=== PATIENT | male | born 1945 | race Caucasian/White ===

== ENCOUNTER 2017-05-13 08:43 | Emergency (ER) | payer OTHER ==
[~2017-05-13 08:43] MED LIST: AMLO5CAP PO; HYDR12.57 PO; OXYC15TA PO; PRAV80TA2 PO; ROPI1TAB PO; VENTAER INH; WARF-23 PO
[2017-05-13 08:48] VITALS: BP 126/58; PULSE 80; RESP 20; TEMP 98.6; O2SAT 93
[2017-05-13 09:15] VITALS: RESP 18; O2SAT 93
[2017-05-13] MEDS ORDERED: ACETAMINOPHEN 325 MG TAB PO ONE (09:45)
[2017-05-13] MEDS ORDERED: SODIUM CHLORID 0.9% 500 ML INJ 500 ML IV ONE (09:45)
[2017-05-13] MEDS ORDERED: SODIUM CHLORIDE 0.9% FLUSH 10 ML FLUSH IVF PRN (09:45)
[2017-05-13] MEDS ORDERED: methylPREDNISolone SOD SUCC 125 MG/2 ML VIAL IV PUSH ONE (09:45)
[2017-05-13 09:52] LABS: AUTOMATED NEUTROPHIL # 4.1 TH/MM3 (1.8-7.7); BASOPHIL # 0.1 TH/MM3 (0-0.2); EOSINOPHIL % 0.1 % (0.0-4.0); HEMOGLOBIN 10.7 GM/DL (13.0-17.0); LYMPHOCYTE # 0.6 TH/MM3 (1.0-4.8); MEAN CELL VOLUME 96.7 FL (80.0-100.0); MEAN CORPUSCULAR HEMOGLOBIN 30.6 PG (27.0-34.0); MEAN CORPUSCULAR HGB CONC 31.6 % (32.0-36.0); MEAN PLATELET VOLUME 7.7 FL (7.0-11.0); MONOCYTE # 0.6 TH/MM3 (0-0.9); NEUT % 75.9 % (16.0-70.0); PLATELET COUNT 191 TH/MM3 (150-450); RED BLOOD COUNT 3.51 MIL/MM3 (4.50-5.90); RED CELL DISTRIBUTION WIDTH 13.7 % (11.6-17.2); WHITE BLOOD COUNT 5.4 TH/MM3 (4.0-11.0)
[2017-05-13] MEDS: RESP: ALBUTEROL 2.5 MG/IPRATROPIUM 0.5 MG NEB (SCH) INH ×2 (09:55→09:56)
[2017-05-13 10:02] LABS: CALCIUM 8.3 MG/DL (8.5-10.1); CHLORIDE 97 MEQ/L (98-107); SODIUM (NA) 135 MEQ/L (136-145)
[2017-05-13 10:03] LABS: ALBUMIN 3.6 GM/DL (3.4-5.0); BICARBONATE 28.6 MEQ/L (21.0-32.0); GLUCOSE,RANDOM 108 MG/DL (74-106)
[2017-05-13 10:06] LABS: CREATININE 0.74 MG/DL (0.60-1.30); GLOMERULAR FILTRATION RATE 104 ML/MIN (>89)
[2017-05-13 10:07] LABS: ALT (GPT) 25 U/L (12-78); TOTAL BILIRUBIN ADULT 0.3 MG/DL (0.2-1.0)
[2017-05-13 10:08] LABS: TOTAL PROTEIN 7.2 GM/DL (6.4-8.2)
[2017-05-13 10:09] LABS: ALKALINE PHOSPHATASE 63 U/L (45-117)
--- NOTE | 2017-05-13 10:09 | RADRPT ---
EXAM DATE/TIME: 05/13/2017 09:50 [place] COMPARISON: CHEST PA & LAT, April 11, 2016, 20:39. INDICATIONS : Short of breath MEDICAL HISTORY : Hypertension. Aneurysm, abdominal SURGICAL HISTORY : None. ENCOUNTER: Initial ACUITY: 3 days PAIN SCORE: 0/10 LOCATION: Bilateral chest FINDINGS: The chest appears stable with mild osteopenia and anterior wedging mild compression mid thoracic vert ebral bodies. There atherosclerotic changes of aorta with normal vascularity and normal sized heart. Lung dias are clear. CONCLUSION: Stable chest with no acute cardiopulmonary process Murali Elliott MD on May 13, 2017 at 10:05 Board Certified Radiologist. This report was verified electronically.
[2017-05-13 10:11] LABS: AST (GOT) 31 U/L (15-37); BLOOD UREA NITROGEN 10 MG/DL (7-18)
[2017-05-13 10:30] VITALS: BP 122/63; PULSE 84; RESP 16; O2SAT 93
[2017-05-13 10:39] VITALS: RESP 16
[2017-05-13] MEDS ORDERED: PRED50 PO (10:54)
[2017-05-13] MEDS ORDERED: ZITHTAB PO (10:54)
--- NOTE | 2017-05-13 10:54 | PD ---
HPI Chief Complaint: Cold / Flu Symptoms Time Seen by Provider: 09:14 Travel History International Travel<30 days: No Contact w/Intl Traveler<30days: No Traveled to known affect area: No History of Present Illness HPI Patient is a 72-year-old male comes in complaining of shortness of breath and cough for 3 days. He says he feels like he "has the flu." He has not had documented temperature at home. He has history of COPD and has been using albuterol at home without much relief. He denies any chest pain. He has not had nausea or vomiting. He denies leg pain or swelling. Nothing seems to make his symptoms better or worse. PFSH Past Medical History Hx Anticoagulant Therapy: Yes AAA: Yes (ADVISED TO F/U WITH PMD 2 YRS AGO. HAS NOT ) Arthritis: No Asthma: No Autoimmune Disease: No Blood Disorders: No Anxiety: Yes Depression: No Heart Rhythm Problems: No Cancer: No Cardiac Catheterization: Yes Cardiovascular Problems: Yes (STENTS) High Cholesterol: Yes Chemotherapy: No Chest Pain: No Congestive Heart Failure: No COPD: Yes Cerebrovascular Accident: No Diabetes: No Diminished Hearing: No Deep Vein Thrombosis: Yes Endocrine: No GERD: No Glaucoma: No Genitourinary: Yes Headaches: No Hepatitis: No Hiatal Hernia: No Hypertension: Yes Kidney Stones: Yes Musculoskeletal: Yes (CHRONIC BACK AND NECK PAIN) Neurologic: Yes Psychiatric: No Respiratory: Yes Myocardial Infarction: No Radiation Therapy: No Renal Failure: No Seizures: No Sickle Cell Disease: No Sleep Apnea: No Thyroid Disease: No Ulcer: No Tetanus Vaccination: < 5 Years Influenza Vaccination: No Past Surgical History Abdominal Surgery: Yes (HERNIA REPAIR LT GROIN) AICD: No Cardiac Surgery: Yes (STENTS x2-3?) Ear Surgery: No Endocrine Surgery: No Eye Surgery: No Genitourinary Surgery: No Gynecologic Surgery: No Neurologic Surgery: No Oral Surgery: No Pacemaker: No Thoracic Surgery: No Other Surgery: Yes (HERNIA REMOVED) Social History Alcohol Use: No Tobacco Use: Yes (1 ppd cigs) Substance Use: No Allergies-Medications (Allergen,Severity, Reaction): Coded Allergies: No Known Allergies (Verified Adverse Reaction, Unknown, 05/13/17) Reported Meds & Prescriptions Reported Meds & Active Scripts Active Reported Hydrochlorothiazide 12.5 Mg Cap 12.5 Mg PO DAILY Warfarin 5 Mg Tab 5 Mg PO DAILY Pravastatin 80 Mg Tab 80 Mg PO DAILY Ropinirole 1 Mg Tab 1 Mg PO ONCE Ventolin Hfa 18 GM Inh (Albuterol Sulfate) 90 Mcg/Act Aer 2 Puff INH Q6H PRN Amlodipine-Benazepril 5-10 Mg Cap 1 Cap PO DAILY Review of Systems Except as stated in HPI: all other systems reviewed are Neg General / Constitutional: No: Fever, Chills HENT: No: Headaches, Lightheadedness Cardiovascular: No: Chest Pain or Discomfort Respiratory: Positive: Cough, Shortness of Breath Gastrointestinal: No: Nausea Genitourinary: No: Dysuria, Flank Pain Musculoskeletal: Positive: Myalgias Skin: No Rash, No Change in Pigmentation Neurologic: No: Weakness, Dizziness Physical Exam Narrative GENERAL: Awake and alert, in no acute distress. SKIN: Focused skin assessment warm/dry. HEAD: Atraumatic. Normocephalic. EYES: Pupils equal and round. No scleral icterus. ENT: Mucous membranes pink and moist. NECK: Trachea midline. No JVD. CARDIOVASCULAR: Regular rate and rhythm. No murmur appreciated. RESPIRATORY: No accessory muscle use. Diffuse wheezing, coarse breath sounds in left. Breath sounds equal bilaterally. GASTROINTESTINAL: Abdomen soft, non-tender, nondistended. MUSCULOSKELETAL: No obvious deformities. No clubbing. No cyanosis. No edema. NEUROLOGICAL: Awake and alert. No obvious cranial nerve deficits. Motor grossly within normal limits. Normal speech. PSYCHIATRIC: Appropriate mood and affect; insight and judgment normal. Data Data Last Documented VS Vital Signs Date Time Temp Pulse Resp B/P (MAP) Pulse Ox O2 Delivery O2 Flow Rate FiO2 05/13/17 10:39 16 05/13/17 10:30 84 122/63 (82) 93 Room Air 05/13/17 08:48 98.6 Orders Orders Influenzae A/B Antigen (05/13/17 08:49) Complete Blood Count With Diff (05/13/17 09:32) Comprehensive Metabolic Panel (05/13/17 09:32) Iv Access Insert/Monitor (05/13/17 09:32) Ecg Monitoring (05/13/17 09:32) Oximetry (05/13/17 09:32) Oxygen Administration (05/13/17 09:32) Chest, Pa & Lat (05/13/17 09:32) Sodium Chloride 0.9% Flush (Ns Flush) (05/13/17 09:45) Methylprednisolone So Succ Inj (Solumedr (05/13/17 09:45) Albuterol-Ipratropium Neb (Duoneb Neb) (05/13/17 09:45) Acetaminophen (Tylenol) (05/13/17 09:45) Sodium Chlorid 0.9% 500 Ml Inj (Ns 500 M (05/13/17 09:45) Labs Laboratory Tests Test 05/13/17 09:40 White Blood Count 5.4 TH/MM3 Red Blood Count 3.51 MIL/MM3 Hemoglobin 10.7 GM/DL Hematocrit 34.0 % Mean Corpuscular Volume 96.7 FL Mean Corpuscular Hemoglobin 30.6 PG Mean Corpuscular Hemoglobin Concent 31.6 % Red Cell Distribution Width 13.7 % Platelet Count 191 TH/MM3 Mean Platelet Volume 7.7 FL Neutrophils (%) (Auto) 75.9 % Lymphocytes (%) (Auto) 11.0 % Monocytes (%) (Auto) 12.0 % Eosinophils (%) (Auto) 0.1 % Basophils (%) (Auto) 1.0 % Neutrophils # (Auto) 4.1 TH/MM3 Lymphocytes # (Auto) 0.6 TH/MM3 Monocytes # (Auto) 0.6 TH/MM3 Eosinophils # (Auto) 0.0 TH/MM3 Basophils # (Auto) 0.1 TH/MM3 CBC Comment DIFF FINAL Differential Comment Blood Urea Nitrogen 10 MG/DL Creatinine 0.74 MG/DL Random Glucose 108 MG/DL Total Protein 7.2 GM/DL Albumin 3.6 GM/DL Calcium Level 8.3 MG/DL Alkaline Phosphatase 63 U/L Aspartate Amino Transf (AST/SGOT) 31 U/L Alanine Aminotransferase (ALT/SGPT) 25 U/L Total Bilirubin 0.3 MG/DL Sodium Level 135 MEQ/L Potassium Level 3.5 MEQ/L Chloride Level 97 MEQ/L Carbon Dioxide Level 28.6 MEQ/L Anion Gap 9 MEQ/L Estimat Glomerular Filtration Rate 104 ML/MIN [facility] Medical Decision Making Medical Screen Exam Complete: Yes Emergency Medical Condition: Yes Medical Record Reviewed: Yes Differential Diagnosis COPD exacerbation versus bronchitis versus pneumonia versus influenza versus URI Narrative Course Patient is a 72-year-old male who comes in complaining of cough and shortness of breath. Exam shows diffuse wheezing as well as coarse breath sounds. IV established, labs sent. Labs show no acute abnormalities. Influenza screen is negative. Chest x-ray performed shows no acute abnormalities. Last 24 hours Impressions Chest X-Ray 05/13/17 0932 Signed Impressions: Service Date/Time: Saturday, May 13, 2017 09:50 - CONCLUSION: Stable chest with no acute cardiopulmonary process Murali Elliott MD Patient given 3 duo nebs and Solu-Medrol. Given IV fluids. He reports feeling better. Lung sounds are now clear to auscultation. He'll be discharged with prescriptions for prednisone as well as azithromycin. Advised follow-up with his primary care doctor. Advised to return to the ED as needed for any worsening symptoms. Diagnosis Primary Impression: COPD (chronic obstructive pulmonary disease) Qualified Codes: J44.1 - Chronic obstructive pulmonary disease with (acute) exacerbation Patient Instructions: COPD (Chronic Obstructive Pulmonary Disease) (ED), General Instructions Additional Instructions: Take all of your antibiotics. Start the Prednisone tomorrow as you had steroids already today. Follow up with your doctor. Return to the ED as needed for any worsening symptoms. Scripts Azithromycin (Zithromax Z-Barry) 250 Mg Dspk 250 MG PO DIRECTED for Infection, #1 DSPK 0 Refills 500 MG (2 tabs) day 1, then 1 tab days 2-5. Prov: Yael Marsh MD 05/13/17 Prednisone (Prednisone) 50 Mg Tab 50 MG PO DAILY for 4 Days, #4 TAB 0 Refills Prov: Yael Marsh MD 05/13/17 Disposition: 01 DISCHARGE HOME Condition: Stable Yael Marsh MD May 13, 2017 10:54
== END 2017-05-13 11:07 | disposition home or self-care (01) ==
LOC: PHED 08:43
DX: J44.1 Chronic obstructive pulmonary disease with (acute) exacerbation (principal); I10 Essential (primary) hypertension; E78.00 Pure hypercholesterolemia, unspecified; F41.9 Anxiety disorder, unspecified; I71.4 Abdominal aortic aneurysm, without rupture; F17.210 Nicotine dependence, cigarettes, uncomplicated; Z87.442 Personal history of urinary calculi; Z86.718 Personal history of other venous thrombosis and embolism; Z79.01 Long term (current) use of anticoagulants; Z79.899 Other long term (current) drug therapy
CPT/HCPCS: 71046; 80053; 85025; 87804; 94640; 94664; 96361; 96374; 99284; J2930; J7040

== ENCOUNTER 2017-11-06 20:00 | Inpatient (IN) ==
[2017-11-06] MEDS ORDERED: Morphine Inj 4 MG/ML Vial IV.PUSH ONE (22:00)
[2017-11-06 22:47] LABS: Baso % (Auto) 0.1 % (0.0-2.0); Eos % (Auto) 0.1 % (0.0-4.0); Hematocrit 35.4 % (39.0-51.0); Lymph # (Auto) 0.6 th/mm3 (1.0-4.8); Lymph % (Auto) 5.4 % (9.0-44.0); Mean Corpuscular HGB Conc 33.9 % (32.0-36.0); Mean Corpuscular Hemoglobin 32.2 pg (27.0-34.0); Mean Platelet Volume 8.8 fL (7.0-11.0); Mono # (Auto) 0.6 th/mm3 (0.0-0.9); Mono % (Auto) 5.8 % (0.0-8.0); Neut # (Auto) 9.5 th/mm3 (1.8-7.7); Neut % (Auto) 88.6 % (16.0-70.0); Platelet Count 218 th/mm3 (150-450); Red Blood Count 3.72 mil/mm3 (4.50-5.90); Red Cell Distribution Width 17.5 % (11.6-17.2); White Blood Count 10.7 th/mm3 (4.0-11.0)
--- NOTE | 2017-11-06 22:55 | XR ---
EXAM DATE: 11/06/2017 10:38 PM EDT AGE/SEX: 72 years / Male INDICATIONS: Cough, short of breath. CLINICAL DATA: This is the patient's initial encounter. Patient reports that signs and symptoms have been present for 1 day and indicates a pain score of 0/10. MEDICAL/SURGICAL HISTORY: Hypertension. Aneurysm, abdominal. None. COMPARISON: [facility], RIBS RIGHT MIN 3V W EXP CHEST, 11/02/2017. . FINDINGS: The patient is rotated towards the right. The heart size is normal. There is some prominence of the r ight hilar region. This could be secondary to the rotation. There is some increased density at the ri ght upper lung. Left lung appears clear. A significant effusion is not seen. There are compression de formities at what appeared to be the T5 and T10 vertebral bodies. CONCLUSION: Rotated chest x-ray. There is some increased prominence at the at the right hilar region and in the r ight upper lobe which could be partially secondary to the rotation. Some degree of consolidation or a telectasis in these regions cannot be excluded. Compression deformities at T5 and T10. Electronically signed by: Juanjo Leigh MD 11/06/2017 10:54 PM EDT
[2017-11-06 23:02] LABS: Activated Partial Thrombo Time 70.7 sec (24.3-30.1); Prothrombin Time 103.9 sec (9.8-11.6)
[2017-11-06 23:07] LABS: INR 10.4 Ratio
[2017-11-06 23:35] LABS: Alanine Aminotransferase 39 U/L (12-78); Albumin 3.6 g/dL (3.4-5.0); Alkaline Phosphatase 73 U/L (45-117); Anion Gap 15 meq/L (5-15); Aspartate Aminotransferase 32 U/L (15-37); Blood Urea Nitrogen 26 mg/dL (7-18); Calcium 9.5 mg/dL (8.5-10.1); Carbon Dioxide 24.6 meq/L (21.0-32.0); Chloride 100 meq/L (98-107); Glomerular Filtration Rate Greater Than 89 mL/min (>89); Glucose,Random 107 mg/dL (74-106); Sodium 140 meq/L (136-145); Total Protein 7.4 g/dL (6.4-8.2)
[2017-11-06 23:39] LABS: Potassium 2.8 meq/L (3.5-5.1)
--- NOTE | 2017-11-07 00:02 | CT ---
EXAM DATE: 11/06/2017 11:50 PM EDT AGE/SEX: 72 years / Male INDICATIONS: Trauma; three days ago. CLINICAL DATA: This is the patient's initial encounter. Patient reports that signs and symptoms have been present for 1 day and indicates a pain score of 5/10. MEDICAL/SURGICAL HISTORY: Deep venous thrombosis. Chronic obstructive pulmonary disease. None. RADIATION DOSE: 66.34 CTDI (mGy) COMPARISON: [facility], CT HEAD W/O CONTRAST, 11/02/2017. . TECHNIQUE: CT of the head without contrast. Using automated exposure control and adjustment of the mA and/or kV according to patient size, radiation dose was kept as low as reasonably achievable to ob tain optimal diagnostic quality images. DICOM format image data is available electronically for revi ew and comparison. FINDINGS: Cerebrum: Moderate parietal lobe atrophy similar to prior exam. The ventricles are normal for degree of atrophy. No evidence of midline shift, mass lesion, hemorrhage or acute infarction. No extraaxia l fluid collections are seen. Posterior Fossa: The cerebellum and brainstem are intact. The 4th ventricle is midline. The cerebe llopontine angle is unremarkable. Extracranial: The visualized portion of the orbits is intact. Mastoid air cells are opacified bilate rally. Skull: The calvaria is intact. No evidence of skull fracture. CONCLUSION: 1. Stable CT examination of the head. 2. No acute intracranial abnormality. Electronically signed by: Albert Lane MD 11/07/2017 12:01 AM EDT
--- NOTE | 2017-11-07 00:11 | CT ---
EXAM DATE: 11/06/2017 11:54 PM EDT AGE/SEX: 72 years / Male INDICATIONS: Trauma three days ago. CLINICAL DATA: This is the patient's initial encounter. Patient reports that signs and symptoms have been present for 1 day and indicates a pain score of 5/10. MEDICAL/SURGICAL HISTORY: Chronic obstructive pulmonary disease. Deep venous thrombosis. None. RADIATION DOSE: 5.21 CTDI (mGy) COMPARISON: [facility], CTA CHEST, 07/23/2017. . TECHNIQUE: Multiple contiguous axial images were obtained through the chest during bolus infusion of 100 ml Omnipaque 350 (iohexol) nonionic water-soluble contrast as a single exam dose. Images were obtained in suspended respiration using multiple row detector helical technique. Using automated ex posure control and adjustment of the mA and/or kV according to patient size, radiation dose was kept as low as reasonably achievable to obtain optimal diagnostic quality images. DICOM format image data is available electronically for review and comparison. FINDINGS: Lung: Mild upper lobe predominant centrilobular emphysema. Stable 4 mm subpleural nodule in the righ t upper lobe. Pleura: No effusion, significant pleural thickening or pneumothorax. Mediastinum: Coronary artery calcifications. Heart is otherwise unremarkable without pericardial eff usion. Central pulmonary artery is patent. Stable fusiform aneurysm of the ascending thoracic aorta m easuring up to 4.1 cm. Thoracic arch and descending thoracic aorta are unremarkable. Osseous Structures: Multiple nondisplaced right-sided rib fractures, 3-7th ribs. Angulated fractures of the anterior right second rib. Stable anterior flowing osteophytes in the mid to lower thoracic sp ine with severe compression fracture of T12 vertebral body. Soft Tissues: Soft tissues are unremarkable. No significant axillary adenopathy. Other: Postsurgical features of aortic aneurysm endograft stent repair. Visualized cephalad portion of the stent is patent. CONCLUSION: 1. Nondisplaced right-sided 3rd-7th rib fractures with angulated fracture of the anterior right seco nd rib. 2. No pneumothorax or pleural effusion. 3. Stable severe compression fracture of T12 vertebral body. 4. Redemonstration of mild upper lobe predominant centrilobular emphysema with stable 4 mm subpleura l nodule in the right upper lobe. 5. 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 6. Coronary artery calcifications. Electronically signed by: Albert Lane MD 11/07/2017 12:10 AM EDT
[2017-11-07] MEDS ORDERED: Phytonadione 5 MG/SWFI 5 ML Oral Syringe PO ONE (00:25)
[2017-11-07] MEDS: Potassium Chlor 20 mEq Premix 20 MEQ/100 ML PIGGYBACK IV.SIG SCH ×2 (03:20→05:30)
[2017-11-07] MEDS: Morphine Inj 4 MG/ML Vial IV.PUSH PRN ×5 (03:22→21:45)
[2017-11-07] MEDS ORDERED: Bisacodyl 10 MG Supp RECTAL PRN (05:22)
--- NOTE | 2017-11-07 05:32 | P.HPIM ---
History of Present Illness Service: [facility] Primary Care Physician: Dennis Martínez MD Chief Complaint: Constipation, pain due to rib fractures History of Present Illness: Mr. Olson is a 72 y/o male with a history of CAD s/p stent, aorta-femoral bypass, hyperlipidemia, hypertension, COPD, and recent fall with rib and clavicle fractures who presented to the ED on 11/06/17 for evaluation of constipation, rectal bleed, and pain from recent fractures. The patient reports severe right lateral rib pain with impaired ability to breath deeply. He reports no BM x 1 week and has seen some rectal bleeding. His INR is 10.4 in ED. The ED doctor was unable to manually disimpact the patient. He is admitted to the [facility] service. Inpatient Certification: I certify that the inpatient services were ordered in accordance with Medicare regulations governing the order. This includes certification that hospital inpatient services are reasonable and necessary and in the case of services not specified as inpatient-only under 42 CFR 419.22(n), that they are appropriately provided as inpatient services in accordance to with the 2-midnight benchmark under 43 CFR 412.3(e) Estimated Total Length of Stay (Days): 2 Plans for Post Hospital Care: Not yet determined Review of Systems All other systems reviewed negative except as stated in HPI [facility] - History History Provided By: Patient - Medical History Medical History: Medical History (Last Updated 11/07/17 @ 05:13 by ANNABEL Perez) DVT (deep venous thrombosis) (Acute) High cholesterol (Acute) HTN (hypertension) (Acute) CAD (coronary artery disease) COPD (chronic obstructive pulmonary disease) Presence of stent in coronary artery in patient with coronary artery disease Onset Date: ~2000 - Surgical History Surgical History: Surgical History (Last Updated 11/07/17 @ 05:13 by ANNABEL Perez) History of aorto-femoral bypass Onset Date: ~2000 - Family History Family History: Family History (Last Updated 11/07/17 @ 05:13 by ANNABEL Perez) Other Family history normal - Tobacco History Tobacco Use In Past 30 Days: Yes Smoking Status: Former smoker Tobacco Type: Cigarettes - Alcohol History How Often Do You Have a Drink Containing Alcohol: 4 or more times a week - Substance Use History Substance History: No History of Abuse - Travel History Recent Travel in the [place] Within the Last 8 Weeks: No Recent Travel Out of the Country Within the Last 8 Weeks: No - Immunization History Tetanus Immunization: <5 Years Hx Influenza Vaccine This Season: No Medications and Allergies Active Medications: Active Medications Morphine Sulfate (Morphine Inj) 4 mg IV.PUSH Q4H PRN PRN Reason: pain 6-10 Last Admin: 11/07/17 03:22 Dose: 4 mg Ondansetron HCl (Zofran Inj) 4 mg IV.PUSH Q6H PRN PRN Reason: NAUSEA Pantoprazole Sodium (Protonix Inj) 40 mg IV.PUSH DAILY DENNY Sodium Chloride (Ns Flush) 2 ml IV.FLUSH PRN PRN PRN Reason: FLUSH AFTER USING IV ACCESS Last Admin: 11/07/17 03:22 Dose: 2 ml Sodium Chloride (Ns Flush) 2 ml IV.FLUSH BID DENNY Sodium Chloride (Ns Flush) 2 ml IV.FLUSH PRN PRN PRN Reason: FLUSH AFTER USING IV ACCESS Allergies Allergy/AdvReac Type Severity Reaction Status Date / Time No Known Allergies Allergy Unverified 11/06/17 21:07 Home Medications Medication Instructions Recorded Confirmed Type Coumadin 10 mg PO DAILY 11/02/17 11/02/17 History amlodipine 10 mg PO DAILY 11/03/17 11/03/17 History hydrochlorothiazide 12.5 mg PO DAILY 11/03/17 11/03/17 History oxycodone-acetaminophen [Percocet] 1 tab PO Q6H PRN 11/03/17 11/03/17 History Exam Vital signs: Vital Signs 11/06/17 21:04 11/06/17 21:06 11/06/17 23:07 Temperature 97.8 F 97.3 F L Pulse Rate 71 103 H Respiratory Rate 20 20 Blood Pressure 125/59 L 151/101 H Pulse Oximetry 97 97 96 11/07/17 02:55 11/07/17 04:36 11/07/17 04:41 Temperature 98.1 F 98.2 F 98.2 F Pulse Rate 90 90 97 H Respiratory Rate 20 17 19 Blood Pressure 118/68 133/68 133/68 Pulse Oximetry 94 L 94 L 94 L Intake & Output 11/06/17 11/06/17 11/07/17 06:59 18:59 06:59 Intake Total 0 / 0 Balance 0 / 0 Weight 77.111 kg Intake: Intake (Blood Product) Amt 0 / 0 Plasma Thawed 5 Day Cp2d Unit 0 / 0 [id number] Plasma Thawed 5 Day Cp2d Unit 0 / 0 [id number] - Constitutional no acute distress, average body habitus - Routine HEENT Exam Head: Present: normocephalic, atraumatic ENT: Absent: dentition normal Comments: poor dentition - Routine Respiratory Exam Present: decreased breath sounds. Absent: wheezes, crackles - Routine Cardiovascular Exam Present: RRR, S1, S2. Absent: murmur, gallop, rubs - Routine Abdominal Exam Present: soft, tenderness. Absent: distended Comments: mildly tender with palpation; hypoactive bs - Routine Extremities Exam Absent: cyanosis, edema - Routine Skin Exam Present: intact, warm, ecchymosis Comments: right scapular area - Routine Neurological Exam Present: alert, oriented X3 Results - Labs CBC & Chem 7: 11/06/17 22:16 11/06/17 22:16 Labs: Short CBC 11/06/17 Range/Units 22:16 WBC 10.7 (4.0-11.0) th/mm3 Hgb 12.0 L (13.0-17.0) gm/dL Hct 35.4 L (39.0-51.0) % Plt Count 218 D (150-450) th/mm3 BMP 11/06/17 22:16 Sodium 140 Potassium 2.8 L* Chloride 100 Carbon Dioxide 24.6 BUN 26 H Creatinine 0.77 Calcium 9.5 Liver Function 11/06/17 Range/Units 22:16 Total Bilirubin 0.6 (0.2-1.0) mg/dL AST 32 (15-37) U/L ALT 39 (12-78) U/L Alkaline Phosphatase 73 (45-117) U/L Albumin 3.6 (3.4-5.0) g/dL - Imaging Impressions Chest X-Ray 11/06/17 22:02 CONCLUSION: Rotated chest x-ray. There is some increased prominence at the at the right hilar region and in the right upper lobe which could be partially secondary to the rotation. Some degree of consolidation or atelectasis in these regions cannot be excluded. Compression deformities at T5 and T10. Chest CT 11/06/17 23:06 CONCLUSION: 1. Nondisplaced right-sided 3rd-7th rib fractures with angulated fracture of the anterior right second rib. 2. No pneumothorax or pleural effusion. 3. Stable severe compression fracture of T12 vertebral body. 4. Redemonstration of mild upper lobe predominant centrilobular emphysema with stable 4 mm subpleural nodule in the right upper lobe. 5. 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 6. Coronary artery calcifications. Head CT 11/06/17 23:08 CONCLUSION: 1. Stable CT examination of the head. 2. No acute intracranial abnormality. Caprini VTE Risk Assessment Caprini VTE Risk Assessment: Moderate/High Risk (score >= 2) Caprini Risk Assessment Model: Point Value = 1 Point Value = 2 Point Value = 3 Point Value = 5 Age 41-60 Minor surgery BMI > 25 kg/m2 Swollen legs Varicose veins or History of unexplained or recurrent spontaneous Oral contraceptives or hormone replacement Sepsis (< 1 month) Serious lung disease, including pneumonia (< 1 month) Abnormal pulmonary function Acute myocardial infarction Congestive heart failure (< 1 month) History of inflammatory bowel disease Medical patient at bed rest Age 61-74 Arthroscopic surgery Major open surgery (> 45 min) Laparoscopic surgery (> 45 min) Malignancy Confined to bed (> 72 hours) Immobilizing plaster cast Central venous access Age >= 75 History of VTE Family history of VTE Factor V Leiden Prothrombin [id number] Lupus anticoagulant Anticardiolipin antibodies Elevated serum homocysteine Heparin-induced thrombocytopenia Other congenital or acquired thrombophilia Stroke (< 1 month) Elective arthroplasty Hip, pelvis, or leg fracture Acute spinal cord injury (< 1 month) Prophylaxis Regimen: Total Risk Factor Score Risk Level Prophylaxis Regimen 0-1 Low Early ambulation 2 Moderate Order ONE of the following: *Sequential Compression Device (SCD) *Heparin 5000 units SQ BID 3-4 Higher Order ONE of the following medications: *Heparin 5000 units SQ TID *Enoxaparin/Lovenox 40 mg SQ daily (WT < 150 kg, CrCl > 30 mL/min) *Enoxaparin/Lovenox 30 mg SQ daily (WT < 150 kg, CrCl > 10-29 mL/min) *Enoxaparin/Lovenox 30 mg SQ BID (WT < 150 kg, CrCl > 30 mL/min) AND/OR *Sequential Compression Device (SCD) 5 or more Highest Order ONE of the following medications: *Heparin 5000 units SQ TID (Preferred with Epidurals) *Enoxaparin/Lovenox 40 mg SQ daily (WT < 150 kg, CrCl > 30 mL/min) *Enoxaparin/Lovenox 30 mg SQ daily (WT < 150 kg, CrCl > 10-29 mL/min) *Enoxaparin/Lovenox 30 mg SQ BID (WT < 150 kg, CrCl > 30 mL/min) AND *Sequential Compression Device (SCD) Assessment and Plan - Plan Mr. Olson is a 72 y/o male with a history of CAD s/p stent, aorta-femoral bypass, hyperlipidemia, hypertension, COPD, and recent fall with rib and clavicle fractures who presented to the ED on 11/06/17 for evaluation of constipation, rectal bleed, and pain from recent fractures. The patient reports severe right lateral rib pain with impaired ability to breath deeply. He reports no BM x 1 week and has seen some rectal bleeding. His INR is 10.4 in ED. The ED doctor was unable to manually disimpact the patient. He is admitted to the [facility] service. GI bleed Constipation - NPO - consult gastroenterology - appreciate assistance - constipation meds per protocol - serial H&H - monitor results - IV Protonix Pain secondary to clavicular and rib fx - IV Morphine PRN pain COPD - Duonebs as needed for wheezing/SOB - incentive spirometry Self-care deficit - consult PT DVT prophylaxis - INR 10.0 Discussed Condition With: Patient, RN, and Dr. Goode
--- NOTE | 2017-11-07 07:34 | ED ---
HPI General Chief complaint: Medical Clearance Stated complaint: Hard to breath/per pt broken rib Time Seen by Provider: 11/06/17 21:52 History of Present Illness HPI narrative: Patient 72-year-old male who approximately a week ago presented to this emergency department for evaluation of right-sided pain after having a slip and fall. Diagnosed with rib fracture, clavicle fracture, head CT head and C-spine which were negative at that time, INR of 3 at that point. Was discharged home with narcotics, he revisited the emergency department once 2 days ago recommended for repeat chest x-ray and he declined. Additional narcotic medication was given to him and he went home. Patient presents emergency department today with shortness of breath and chest pain that is persisting, he states that he is also noticed some blood in his stool and is very difficult for him to make stool. He states he tried some Dulcolax suppositories and this was not helping. He has been taking his Coumadin as prescribed, denies any other decreased p.o. intake. He states he has been having some mild shortness of breath which he clarifies to mean he is having some pain with deep breathing. No abdominal pain no nausea no vomiting. Onset (ago): week(s) Location: chest Radiation: non-radiation Severity: moderate Pain Consistency: constant Relieving factors: none Exacerbating factors: none Related Data Home Medications Medication Instructions Recorded Confirmed Coumadin 10 mg PO DAILY 11/02/17 11/07/17 amlodipine 10 mg PO DAILY 11/03/17 11/07/17 hydrochlorothiazide 12.5 mg PO DAILY 11/03/17 11/07/17 oxycodone-acetaminophen [Percocet] 1 tab PO Q6H PRN 11/03/17 11/07/17 Allergies Allergy/AdvReac Type Severity Reaction Status Date / Time No Known Allergies Allergy Unverified 11/06/17 21:07 Review of Systems Except as stated in HPI: all other systems reviewed are negative [facility] Medical History Medical History DVT (deep venous thrombosis) (Acute) High cholesterol (Acute) HTN (hypertension) (Acute) CAD (coronary artery disease) (Acute) COPD (chronic obstructive pulmonary disease) (Acute) Presence of stent in coronary artery in patient with coronary artery disease ( Acute ~2000) Surgical History Surgical History History of aorto-femoral bypass (Acute ~2000) Family History Family History Other Family history normal Social History Social History Substance History: No History of Abuse Smoking Status: Former smoker Tobacco Type: Cigarettes How Often Do You Have a Drink Containing Alcohol: 4 or more times a week Recent Travel in [facility] within the Last 8 Weeks: No Recent Out of Country Travel within the Last 8 Weeks: No Exam Narrative Exam Narrative: GENERAL: Well-developed well-nourished in no obvious distress SKIN: Focused skin assessment warm/dry. Large contusion to the right anterior chest, there is also small hematoma over the mid clavicle. HEAD: Atraumatic. Normocephalic. EYES: Pupils equal and round. No scleral icterus. No injection or drainage. ENT: No nasal bleeding or discharge. Mucous membranes pink and moist. NECK: Trachea midline. No JVD. CARDIOVASCULAR: Regular rate and rhythm. No murmur appreciated. RESPIRATORY: No accessory muscle use. Clear to auscultation. Breath sounds equal bilaterally. GASTROINTESTINAL: Abdomen soft, non-tender, nondistended. Hepatic and splenic margins not palpable. RECTAL: This is a fairly hard accumulation of stool in the rectum, is at the tip of my finger and could not be expressed manually, fecal occult is positive, there is bright red blood mixed with brown stool. MUSCULOSKELETAL: No obvious deformities. No clubbing. No cyanosis. No edema. NEUROLOGICAL: Awake and alert. No obvious cranial nerve deficits. Motor grossly within normal limits. Normal speech. PSYCHIATRIC: Appropriate mood and affect; insight and judgment normal. Course Initial Documented Vital Signs Temperature 97.8 F 11/06/17 21:04 Pulse Rate 71 11/06/17 21:04 Respiratory Rate 20 11/06/17 21:04 Blood Pressure 125/59 L 11/06/17 21:04 Pulse Oximetry 97 11/06/17 21:04 Last Documented Vital Signs Temperature 98.2 F 11/07/17 04:41 Pulse Rate 97 H 11/07/17 04:41 Respiratory Rate 19 11/07/17 04:41 Blood Pressure 133/68 11/07/17 04:41 Pulse Oximetry 94 L 11/07/17 04:41 Critical Care Time Critical Care Time: Yes Total Critical Care Time: 35 Attestation: Aggregate critical care time was 35 minutes. Time to perform other separately billable procedures was not included in the critical care time. My time did not include minutes spent treating any other patients simultaneously or on activities that did not directly contribute to the patient's treatment. The services I provided to this patient were to treat and/or prevent clinically significant deterioration that could result in: , disability, organ failure I provided critical care services requiring my management, as noted below: Chart data review, documentation time, medication orders and management, vital sign assessments/reviewing monitor data, ordering and reviewing lab tests, ordering and interpreting/reviewing x-rays and diagnostic studies, care of the patient and discussion of the patient with the admitting physicians. Medical Decision Making MDM Narrative Medical decision making narrative: Patient room to the emergency department, my overall impression of him that this is probably rib pain secondary to his fall and constipation and subsequent GI bleeding which is exacerbated by hard stool probably from opiate therapy, he does have supratherapeutic INR with the value of 10, discussed with the patient vitamin K and plasma administration as well as recommendation to admit to the hospital for monitoring of H&H and INR levels. He verbalized understanding agreement. Morphine was given. CT of his chest was negative for internal injury but did show multiple right-sided rib fractures, CT head was repeated for delayed bleeding possibility and was also Differential Diagnosis Differential Diagnosis: Rib fracture, clavicle fracture, intrathoracic hematoma , head injury, delayed bleeding, coagulopathy, supratherapeutic INR, GI bleeding. Lab Data Result diagrams: 11/06/17 22:16 11/06/17 22:16 Lab Results 11/06/17 11/06/17 11/06/17 Range/Units 22:16 22:16 22:16 WBC 10.7 (4.0-11.0) th/mm3 RBC 3.72 L (4.50-5.90) mil/mm3 Hgb 12.0 L (13.0-17.0) gm/dL Hct 35.4 L (39.0-51.0) % MCV 95.0 (80.0-100.0) fL MCH 32.2 (27.0-34.0) pg MCHC 33.9 (32.0-36.0) % RDW 17.5 H (11.6-17.2) % Plt Count 218 D (150-450) th/mm3 MPV 8.8 (7.0-11.0) fL Neut % (Auto) 88.6 H (16.0-70.0) % Lymph % (Auto) 5.4 L (9.0-44.0) % Dawson % (Auto) 5.8 (0.0-8.0) % Eos % (Auto) 0.1 (0.0-4.0) % Baso % (Auto) 0.1 (0.0-2.0) % Neut # (Auto) 9.5 H (1.8-7.7) th/mm3 Lymph # (Auto) 0.6 L (1.0-4.8) th/mm3 Dawson # (Auto) 0.6 (0.0-0.9) th/mm3 Eos # (Auto) 0.0 (0.0-0.4) th/mm3 Baso # (Auto) 0.0 (0.0-0.2) th/mm3 WBC Differential . Differential Comment Auto diff final PT 103.9 H D (9.8-11.6) sec INR 10.4 H* Ratio APTT 70.7 H (24.3-30.1) sec Sodium 140 (136-145) meq/L Potassium 2.8 L* (3.5-5.1) meq/L Chloride 100 (98-107) meq/L Carbon Dioxide 24.6 (21.0-32.0) meq/L Anion Gap 15 (5-15) meq/L BUN 26 H (7-18) mg/dL Creatinine 0.77 (0.60-1.30) mg/dL Estimated GFR Greater than 89 (>89) mL/min POC Glucose (68-110) mg/dl Random Glucose 107 H (74-106) mg/dL Calcium 9.5 (8.5-10.1) mg/dL Total Bilirubin 0.6 (0.2-1.0) mg/dL AST 32 (15-37) U/L ALT 39 (12-78) U/L Alkaline Phosphatase 73 (45-117) U/L Total Protein 7.4 (6.4-8.2) g/dL Albumin 3.6 (3.4-5.0) g/dL Blood Type Blood Type Recheck Antibody Screen Blood Bank Comment 11/06/17 11/06/17 11/07/17 Range/Units 22:16 23:28 01:00 WBC (4.0-11.0) th/mm3 RBC (4.50-5.90) mil/mm3 Hgb (13.0-17.0) gm/dL Hct (39.0-51.0) % MCV (80.0-100.0) fL MCH (27.0-34.0) pg MCHC (32.0-36.0) % RDW (11.6-17.2) % Plt Count (150-450) th/mm3 MPV (7.0-11.0) fL Neut % (Auto) (16.0-70.0) % Lymph % (Auto) (9.0-44.0) % Dawson % (Auto) (0.0-8.0) % Eos % (Auto) (0.0-4.0) % Baso % (Auto) (0.0-2.0) % Neut # (Auto) (1.8-7.7) th/mm3 Lymph # (Auto) (1.0-4.8) th/mm3 Dawson # (Auto) (0.0-0.9) th/mm3 Eos # (Auto) (0.0-0.4) th/mm3 Baso # (Auto) (0.0-0.2) th/mm3 WBC Differential Differential Comment PT (9.8-11.6) sec INR Ratio APTT (24.3-30.1) sec Sodium (136-145) meq/L Potassium (3.5-5.1) meq/L Chloride (98-107) meq/L Carbon Dioxide (21.0-32.0) meq/L Anion Gap (5-15) meq/L BUN (7-18) mg/dL Creatinine (0.60-1.30) mg/dL Estimated GFR (>89) mL/min POC Glucose 116 H (68-110) mg/dl Random Glucose (74-106) mg/dL Calcium (8.5-10.1) mg/dL Total Bilirubin (0.2-1.0) mg/dL AST (15-37) U/L ALT (12-78) U/L Alkaline Phosphatase (45-117) U/L Total Protein (6.4-8.2) g/dL Albumin (3.4-5.0) g/dL Blood Type O Negative Blood Type Recheck Required Antibody Screen Negative Blood Bank Comment Imaging Data Radiologist's impression: ITS Impressions Chest X-Ray 11/06/17 22:02 CONCLUSION: Rotated chest x-ray. There is some increased prominence at the at the right hilar region and in the right upper lobe which could be partially secondary to the rotation. Some degree of consolidation or atelectasis in these regions cannot be excluded. Compression deformities at T5 and T10. Chest CT 11/06/17 23:06 CONCLUSION: 1. Nondisplaced right-sided 3rd-7th rib fractures with angulated fracture of the anterior right second rib. 2. No pneumothorax or pleural effusion. 3. Stable severe compression fracture of T12 vertebral body. 4. Redemonstration of mild upper lobe predominant centrilobular emphysema with stable 4 mm subpleural nodule in the right upper lobe. 5. 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 6. Coronary artery calcifications. Head CT 11/06/17 23:08 CONCLUSION: 1. Stable CT examination of the head. 2. No acute intracranial abnormality. Discharge Plan Discharge Disposition Patient Disposition: 30 Still Patient Discharge Details Diagnosis: Acute GI bleeding, Constipation, Abnormal INR, Closed rib fracture Physicians Team ED Provider: Bernardino Correa Primary Care Provider: Dennis Martínez Attending Provider: Casey Fried Other Providers: Corby Conrejo Discharge Interventions Interventions: Vital Signs Last Done: 11/06/17 21:06 Status ED Status: Admitted Patient
--- NOTE | 2017-11-07 08:49 | P.CONGI ---
History of Present Illness Consult date: 11/07/17 Chief complaint: GI Bleeding, Elev INR=10, Chest Wall Pain History of Present Illness: This is a 72 yo M with PMH significant for CAD S/P stents x 3, COPD, history of DVT, HTN, hyperlipidemia, and history of aorto-femoral bypass who is on chronic anticoagulation with Coumadin who presented to her ER last night with complaints of constipation. Pt reports symptoms began about a week ago after being on pain medication for a rib fracture after a fall. Reports that he has had some incontinent liquid stool that has passed but denies solid BMs. Pt has also noticed some BRB clots in his BMs, approximately 3 episodes. Denies abdominal pain but does endorse rectal pain when he tries to pass stool. In the ER he was noted to have an INR of 10.4 and according to ER notes the ER physician was unable to manually disimpact him. Pt denies history of GIB. Has never had EGD or colonoscopy. Denies any unintentional weight loss. <Angela Ovalles - Last Filed: 11/07/17 08:36> Chief complaint: GI Bleeding, Elev INR=10, Chest Wall Pain <Corby Cornejo - Last Filed: 11/08/17 09:43> Review of Systems Gastrointestinal: Reports bright, red blood in stools, Reports constipation, Denies abdominal pain, Denies black, tarry stools, Denies nausea, Denies vomiting <Angela Ovalles - Last Filed: 11/07/17 08:36> [facility] - History History Provided By: Patient - Medical History Medical History: Medical History (Last Reviewed 11/07/17 @ 07:43 by Dionisio Griffin) DVT (deep venous thrombosis) (Acute) High cholesterol (Acute) HTN (hypertension) (Acute) CAD (coronary artery disease) COPD (chronic obstructive pulmonary disease) Presence of stent in coronary artery in patient with coronary artery disease Onset Date: ~2000 - Surgical History Surgical History: Surgical History (Last Reviewed 11/07/17 @ 07:43 by Dionisio Griffin) History of aorto-femoral bypass Onset Date: ~2000 - Family History Family History: Family History (Last Updated 11/07/17 @ 05:13 by ANNABEL Perez) Other Family history normal - Tobacco History Tobacco Use In Past 30 Days: Yes Smoking Status: Former smoker Tobacco Type: Cigarettes - Alcohol History How Often Do You Have a Drink Containing Alcohol: 4 or more times a week - Substance Use History Substance History: No History of Abuse - Travel History Recent Travel in the [place] Within the Last 8 Weeks: No Recent Travel Out of the Country Within the Last 8 Weeks: No - Immunization History Tetanus Immunization: <5 Years Hx Influenza Vaccine This Season: No <Angela Ovalles - Last Filed: 11/07/17 08:36> - Medical History Medical History: Medical History (Last Reviewed 11/07/17 @ 07:43 by Dionisio Griffin) DVT (deep venous thrombosis) (Acute) High cholesterol (Acute) HTN (hypertension) (Acute) CAD (coronary artery disease) COPD (chronic obstructive pulmonary disease) Presence of stent in coronary artery in patient with coronary artery disease Onset Date: ~2000 - Surgical History Surgical History: Surgical History (Last Reviewed 11/07/17 @ 07:43 by Dionisio Griffin) History of aorto-femoral bypass Onset Date: ~2000 - Family History Family History: Family History (Last Updated 11/07/17 @ 05:13 by ANNABEL Perez) Other Family history normal <Corby Cornejo - Last Filed: 11/08/17 09:43> Medications and Allergies Active Medications: Active Medications Al Hydroxide/Mg Hydroxide (Milk Of Magnesia Liq) 30 ml PO Q12H PRN PRN Reason: Mild Constipation Albuterol (Duoneb Neb (Prn)) 1 ampul NEB Q2HR NEB PRN PRN Reason: sob/wheezing Bisacodyl (Dulcolax Supp) 10 mg RECTAL DAILY PRN PRN Reason: SEVERE CONSITIPATION Lactulose (Lactulose Liq) 30 ml PO DAILY PRN PRN Reason: SEVERE CONSITIPATION Morphine Sulfate (Morphine Inj) 4 mg IV.PUSH Q4H PRN PRN Reason: pain 6-10 Last Admin: 11/07/17 03:22 Dose: 4 mg Ondansetron HCl (Zofran Inj) 4 mg IV.PUSH Q6H PRN PRN Reason: NAUSEA Pantoprazole Sodium (Protonix Inj) 40 mg IV.PUSH DAILY [facility] Senna/Docusate Sodium (Kristina-Colace) 1 tab PO BID [facility] Sennosides (Senokot) 17.2 mg PO Q12H PRN PRN Reason: Moderate Constipation Sodium Chloride (Ns Flush) [address] [facility] Sodium Chloride (Ns Flush) 2 ml IV.FLUSH PRN PRN PRN Reason: FLUSH AFTER USING IV ACCESS <Angela Ovalles - Last Filed: 11/07/17 08:36> Active Medications: Active Medications Al Hydroxide/Mg Hydroxide (Milk Of Magnesia Liq) 30 ml PO Q12H PRN PRN Reason: Mild Constipation Albuterol (Duoneb Neb (Prn)) 1 ampul NEB Q2HR NEB PRN PRN Reason: sob/wheezing Bisacodyl (Dulcolax Supp) 10 mg RECTAL DAILY PRN PRN Reason: SEVERE CONSITIPATION Lactulose (Lactulose Liq) 30 ml PO DAILY PRN PRN Reason: SEVERE CONSITIPATION Morphine Sulfate (Morphine Inj) 4 mg IV.PUSH Q4H PRN PRN Reason: pain 6-10 Last Admin: 11/07/17 18:09 Dose: 4 mg Ondansetron HCl (Zofran Inj) 4 mg IV.PUSH Q6H PRN PRN Reason: NAUSEA Pantoprazole Sodium (Protonix Inj) [address] [facility] Last Admin: 11/07/17 10:04 Dose: 40 mg Senna/Docusate Sodium (Kristina-Colace) [address] [facility] Last Admin: 11/07/17 10:05 Dose: 1 tab Sennosides (Senokot) 17.2 mg PO Q12H PRN PRN Reason: Moderate Constipation Sodium Chloride (Ns Flush) [address] [facility] Last Admin: 11/07/17 10:05 Dose: 2 ml Sodium Chloride (Ns Flush) 2 ml IV.FLUSH PRN PRN PRN Reason: FLUSH AFTER USING IV ACCESS <Corby Cornejo - Last Filed: 11/08/17 09:43> Allergies Allergy/AdvReac Type Severity Reaction Status Date / Time No Known Allergies Allergy Unverified 11/06/17 21:07 Home Medications Medication Instructions Recorded Confirmed Type Coumadin 10 mg PO DAILY 11/02/17 11/07/17 History amlodipine 10 mg PO DAILY 11/03/17 11/07/17 History hydrochlorothiazide 12.5 mg PO DAILY 11/03/17 11/07/17 History oxycodone-acetaminophen [Percocet] 1 tab PO Q6H PRN 11/03/17 11/07/17 History Exam Vital signs: Vital Signs 11/06/17 21:04 11/06/17 21:06 11/06/17 23:07 Temperature 97.8 F 97.3 F L Pulse Rate 71 103 H Respiratory Rate 20 20 Blood Pressure 125/59 L 151/101 H Pulse Oximetry 97 97 96 11/07/17 02:55 11/07/17 04:36 11/07/17 04:41 Temperature 98.1 F 98.2 F 98.2 F Pulse Rate 90 90 97 H Respiratory Rate 20 17 19 Blood Pressure 118/68 133/68 133/68 Pulse Oximetry 94 L 94 L 94 L Intake & Output 11/06/17 11/07/17 11/07/17 18:59 06:59 18:59 Intake Total 100 / 100 Balance 100 / 100 Weight 77.111 kg Intake: IV 100 / 100 KCl 20 mEq Premix Inj 20 meq In 100 / 100 100 ml @ 50 mls/hr IV.SIG Q2H [facility] Rx#:[id number] Intake (Blood Product) Amt 0 / 0 Plasma Thawed 5 Day Cp2d Unit 0 / 0 [id number] Plasma Thawed 5 Day Cp2d Unit 0 / 0 [id number] - Constitutional mild distress - Routine HEENT Exam Head: Present: normocephalic, atraumatic - Routine Respiratory Exam Absent: accessory muscle use - Routine Cardiovascular Exam Present: RRR - Routine Abdominal Exam Present: soft, normoactive bowel sounds. Absent: tenderness, distended, rebound , guarding - Routine Skin Exam Present: dry, warm - Routine Neurological Exam Present: alert, oriented X3 <Angela Ovalles - Last Filed: 11/07/17 08:36> Vital signs: Vital Signs 11/06/17 21:04 11/06/17 21:06 11/06/17 23:07 Temperature 97.8 F 97.3 F L Pulse Rate 71 103 H Respiratory Rate 20 20 Blood Pressure 125/59 L 151/101 H Pulse Oximetry 97 97 96 11/07/17 02:55 11/07/17 04:36 11/07/17 04:41 Temperature 98.1 F 98.2 F 98.2 F Pulse Rate 90 90 97 H Respiratory Rate 20 17 19 Blood Pressure 118/68 133/68 133/68 Pulse Oximetry 94 L 94 L 94 L 11/07/17 13:24 11/07/17 13:42 11/07/17 14:08 Temperature 98.2 F Pulse Rate 91 H Respiratory Rate 18 18 Blood Pressure 123/95 H Pulse Oximetry 93 L 93 L 11/07/17 15:18 11/07/17 16:12 Temperature 98 F Pulse Rate 93 H 96 H Respiratory Rate 18 Blood Pressure 127/72 Pulse Oximetry 94 L Intake & Output 11/07/17 11/07/17 11/08/17 06:59 18:59 06:59 Intake Total 100 / 100 460 / 460 Balance 100 / 100 460 / 460 Weight 77.111 kg 71 kg Intake: IV 100 / 100 100 / 100 KCl 20 mEq Premix Inj 20 meq In 100 / 100 100 / 100 100 ml @ 50 mls/hr IV.SIG Q2H [facility] Rx#:[id number] Oral 360 / 360 Intake (Blood Product) Amt 0 / 0 Plasma Thawed 5 Day Cp2d Unit 0 / 0 [id number] Plasma Thawed 5 Day Cp2d Unit 0 / 0 [id number] Other: # Voids 2 Date of Last Bowel Movement 11/07/17 # Bowel Movements 2 Weight On Admission 71 kg <Corby Cornejo - Last Filed: 11/08/17 09:43> Results - Labs CBC & Chem 7: 11/06/17 22:16 11/06/17 22:16 Labs: Laboratory Results - last 24 hr 11/06/17 11/06/17 11/06/17 22:16 22:16 22:16 WBC 10.7 RBC 3.72 L Hgb 12.0 L Hct 35.4 L MCV 95.0 MCH 32.2 MCHC 33.9 RDW 17.5 H Plt Count 218 D MPV 8.8 Neut % (Auto) 88.6 H Lymph % (Auto) 5.4 L Cuming % (Auto) 5.8 Eos % (Auto) 0.1 Baso % (Auto) 0.1 Neut # (Auto) 9.5 H Lymph # (Auto) 0.6 L Cuming # (Auto) 0.6 Eos # (Auto) 0.0 Baso # (Auto) 0.0 WBC Differential . Differential Comment Auto diff final PT 103.9 H D INR 10.4 H* APTT 70.7 H Sodium 140 Potassium 2.8 L* Chloride 100 Carbon Dioxide 24.6 Anion Gap 15 BUN 26 H Creatinine 0.77 Estimated GFR Greater than 89 POC Glucose Random Glucose 107 H Calcium 9.5 Total Bilirubin 0.6 AST 32 ALT 39 Alkaline Phosphatase 73 Total Protein 7.4 Albumin 3.6 Blood Type Blood Type Recheck Antibody Screen Blood Bank Comment 11/06/17 11/06/17 11/07/17 22:16 23:28 01:00 WBC RBC Hgb Hct MCV MCH MCHC RDW Plt Count MPV Neut % (Auto) Lymph % (Auto) Cuming % (Auto) Eos % (Auto) Baso % (Auto) Neut # (Auto) Lymph # (Auto) Cuming # (Auto) Eos # (Auto) Baso # (Auto) WBC Differential Differential Comment PT INR APTT Sodium Potassium Chloride Carbon Dioxide Anion Gap BUN Creatinine Estimated GFR POC Glucose 116 H Random Glucose Calcium Total Bilirubin AST ALT Alkaline Phosphatase Total Protein Albumin Blood Type O Negative Blood Type Recheck Required Antibody Screen Negative Blood Bank Comment - Imaging Impressions Chest X-Ray 11/06/17 22:02 CONCLUSION: Rotated chest x-ray. There is some increased prominence at the at the right hilar region and in the right upper lobe which could be partially secondary to the rotation. Some degree of consolidation or atelectasis in these regions cannot be excluded. Compression deformities at T5 and T10. Chest CT 11/06/17 23:06 CONCLUSION: 1. Nondisplaced right-sided 3rd-7th rib fractures with angulated fracture of the anterior right second rib. 2. No pneumothorax or pleural effusion. 3. Stable severe compression fracture of T12 vertebral body. 4. Redemonstration of mild upper lobe predominant centrilobular emphysema with stable 4 mm subpleural nodule in the right upper lobe. 5. 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 6. Coronary artery calcifications. Head CT 11/06/17 23:08 CONCLUSION: 1. Stable CT examination of the head. 2. No acute intracranial abnormality. <Angela Ovalles - Last Filed: 11/07/17 08:36> - Labs CBC & Chem 7: 11/08/17 04:34 11/08/17 04:34 Labs: Laboratory Results - last 24 hr 0711/06/17 11/06/17 22:16 22:16 22:16 WBC 10.7 RBC 3.72 L Hgb 12.0 L Hct 35.4 L MCV 95.0 MCH 32.2 MCHC 33.9 RDW 17.5 H Plt Count 218 D MPV 8.8 Neut % (Auto) 88.6 H Lymph % (Auto) 5.4 L Cuming % (Auto) 5.8 Eos % (Auto) 0.1 Baso % (Auto) 0.1 Neut # (Auto) 9.5 H Lymph # (Auto) 0.6 L Cuming # (Auto) 0.6 Eos # (Auto) 0.0 Baso # (Auto) 0.0 WBC Differential . Differential Comment Auto diff final PT 103.9 H D INR 10.4 H* APTT 70.7 H Sodium 140 Potassium 2.8 L* Chloride 100 Carbon Dioxide 24.6 Anion Gap 15 BUN 26 H Creatinine 0.77 Estimated GFR Greater than 89 POC Glucose Random Glucose 107 H Calcium 9.5 Total Bilirubin 0.6 AST 32 ALT 39 Alkaline Phosphatase 73 Total Protein 7.4 Albumin 3.6 Blood Type Blood Type Recheck Antibody Screen Blood Bank Comment 11/06/17 11/06/17 11/07/17 22:16 23:28 01:00 WBC RBC Hgb Hct MCV MCH MCHC RDW Plt Count MPV Neut % (Auto) Lymph % (Auto) Cuming % (Auto) Eos % (Auto) Baso % (Auto) Neut # (Auto) Lymph # (Auto) Cuming # (Auto) Eos # (Auto) Baso # (Auto) WBC Differential Differential Comment PT INR APTT Sodium Potassium Chloride Carbon Dioxide Anion Gap BUN Creatinine Estimated GFR POC Glucose 116 H Random Glucose Calcium Total Bilirubin AST ALT Alkaline Phosphatase Total Protein Albumin Blood Type O Negative Blood Type Recheck Required Antibody Screen Negative Blood Bank Comment 11/07/17 11/07/17 11/07/17 07:39 07:39 12:17 WBC 8.9 RBC 3.07 L Hgb 10.1 L 9.7 L Hct 29.3 L 28.3 L MCV 95.5 MCH 32.8 MCHC 34.4 RDW 17.4 H Plt Count 183 MPV 8.9 Neut % (Auto) 79.3 H Lymph % (Auto) 10.3 Cuming % (Auto) 9.4 H Eos % (Auto) 0.8 Baso % (Auto) 0.2 Neut # (Auto) 7.1 Lymph # (Auto) 0.9 L Cuming # (Auto) 0.8 Eos # (Auto) 0.1 Baso # (Auto) 0.0 WBC Differential . Differential Comment Auto diff final PT INR APTT Sodium 140 Potassium 2.7 L* Chloride 102 Carbon Dioxide 24.2 Anion Gap 14 BUN 21 H Creatinine 0.53 L Estimated GFR Greater than 89 POC Glucose Random Glucose 83 Calcium 8.8 Total Bilirubin AST ALT Alkaline Phosphatase Total Protein Albumin Blood Type Blood Type Recheck Antibody Screen Blood Bank Comment 11/07/17 18:40 WBC RBC Hgb 10.5 L Hct 30.8 L MCV MCH MCHC RDW Plt Count MPV Neut % (Auto) Lymph % (Auto) Cuming % (Auto) Eos % (Auto) Baso % (Auto) Neut # (Auto) Lymph # (Auto) Cuming # (Auto) Eos # (Auto) Baso # (Auto) WBC Differential Differential Comment PT INR APTT Sodium Potassium Chloride Carbon Dioxide Anion Gap BUN Creatinine Estimated GFR POC Glucose Random Glucose Calcium Total Bilirubin AST ALT Alkaline Phosphatase Total Protein Albumin Blood Type Blood Type Recheck Antibody Screen Blood Bank Comment - Imaging Impressions Chest X-Ray 11/06/17 22:02 CONCLUSION: Rotated chest x-ray. There is some increased prominence at the at the right hilar region and in the right upper lobe which could be partially secondary to the rotation. Some degree of consolidation or atelectasis in these regions cannot be excluded. Compression deformities at T5 and T10. Chest CT 11/06/17 23:06 CONCLUSION: 1. Nondisplaced right-sided 3rd-7th rib fractures with angulated fracture of the anterior right second rib. 2. No pneumothorax or pleural effusion. 3. Stable severe compression fracture of T12 vertebral body. 4. Redemonstration of mild upper lobe predominant centrilobular emphysema with stable 4 mm subpleural nodule in the right upper lobe. 5. 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 6. Coronary artery calcifications. Head CT 11/06/17 23:08 CONCLUSION: 1. Stable CT examination of the head. 2. No acute intracranial abnormality. Abdomen X-Ray 11/07/17 00:00 CONCLUSION: No evidence of obstruction. <Corby Cornejo A - Last Filed: 11/08/17 09:43> Assessment and Plan (1) Acute GI bleeding Status: Acute Code(s): K92.2 - Gastrointestinal hemorrhage, unspecified (2) Constipation Status: Acute Code(s): K59.00 - Constipation, unspecified - Plan Assessment: - Constipation began about one week ago, but states symptoms began after starting opioid pain medication for a rib fracture after a fall, pt was seen in ER for this on 11/02. Reports some incontinent loose stool but unable to have any solid stool. Pain in rectum with attempted bowel movement. Also reports some BRB clots, approximately 3 episodes of this. Denies history of GIB. Has never had EGD or colonoscopy. Denies associated abdominal pain, nausea, vomiting. - Supratherapeutic INR- INR 10.4- on Coumadin -CAD S/P stents x 3, history of DVT, history of aorto-femoral bypass Plan: 2 U thawed plasma already given 2 U FFP have been ordered by attending Correction of INR Serial H/H Soap suds enema x [address] abdomen and pelvis W IV contrast Relistor x 1 Will need colonoscopy after correction of INR Further recommendations based on clinical course Pt has been seen and examined by myself and Dr. Cornejo and this note is written on his behalf <Angela Ovalles - Last Filed: 11/07/17 08:36> (1) Acute GI bleeding Status: Acute Code(s): K92.2 - Gastrointestinal hemorrhage, unspecified (2) Constipation Status: Acute Code(s): K59.00 - Constipation, unspecified - Attending Attestation Seen and examined, plan as above. Just had large BM today, will hold relistor for now and postpond CT abdomen. Correcting coagulopathy and possible Colonoscopy once coagulopathy corrected.. Thank you for the consult. <Corby Cornejo - Last Filed: 11/08/17 09:43>
[2017-11-07 09:45] LABS: Baso % (Auto) 0.2 % (0.0-2.0); Eos # (Auto) 0.1 th/mm3 (0.0-0.4); Eos % (Auto) 0.8 % (0.0-4.0); Hematocrit 29.3 % (39.0-51.0); Hemoglobin 10.1 gm/dL (13.0-17.0); Lymph # (Auto) 0.9 th/mm3 (1.0-4.8); Lymph % (Auto) 10.3 % (9.0-44.0); Mean Corpuscular HGB Conc 34.4 % (32.0-36.0); Mean Corpuscular Hemoglobin 32.8 pg (27.0-34.0); Mean Corpuscular Volume 95.5 fL (80.0-100.0); Mean Platelet Volume 8.9 fL (7.0-11.0); Mono # (Auto) 0.8 th/mm3 (0.0-0.9); Mono % (Auto) 9.4 % (0.0-8.0); Neut # (Auto) 7.1 th/mm3 (1.8-7.7); Neut % (Auto) 79.3 % (16.0-70.0); Platelet Count 183 th/mm3 (150-450); Red Blood Count 3.07 mil/mm3 (4.50-5.90); Red Cell Distribution Width 17.4 % (11.6-17.2); White Blood Count 8.9 th/mm3 (4.0-11.0)
[2017-11-07] MEDS: Pantoprazole Inj 40 MG Vial IV.PUSH SCH (10:04)
[2017-11-07] MEDS: Senna/Docusate Sodium 8.6/50 MG Tablet PO SCH ×2 (10:05→21:14)
[2017-11-07 10:07] LABS: Anion Gap 14 meq/L (5-15); Calcium 8.8 mg/dL (8.5-10.1); Carbon Dioxide 24.2 meq/L (21.0-32.0); Chloride 102 meq/L (98-107); Glomerular Filtration Rate Greater Than 89 mL/min (>89); Glucose,Random 83 mg/dL (74-106); Sodium 140 meq/L (136-145)
[2017-11-07 10:17] LABS: Blood Urea Nitrogen 21 mg/dL (7-18)
[2017-11-07 10:19] LABS: Potassium 2.7 meq/L (3.5-5.1)
--- NOTE | 2017-11-07 10:29 | XR ---
EXAM DATE: 11/07/2017 10:12 AM EDT AGE/SEX: 72 years / Male INDICATIONS: Abdominal pain. Complains of constipation. CLINICAL DATA: This is the patient's initial encounter. Patient reports that signs and symptoms have been present for 1 week and indicates a pain score of 10/10. MEDICAL/SURGICAL HISTORY: . Hypertension. Aneurysm None. COMPARISON: No prior exams available for comparison. FINDINGS: The abdominal bowel gas pattern is normal. No abnormal masses, calcifications, or organomegaly is s een. The osseous structures are unremarkable. Aortic stent graft is in place CONCLUSION: No evidence of obstruction. Electronically signed by: Zack Mendiola MD 11/07/2017 10:28 AM EDT
[2017-11-07] MEDS ORDERED: Methylnaltrexone Inj 12 MG/0.6 ML Vial SQ ONE (11:00)
[2017-11-07 12:58] LABS: Hematocrit 28.3 % (39.0-51.0); Hemoglobin 9.7 gm/dL (13.0-17.0)
--- NOTE | 2017-11-07 13:05 | P.PN ---
Subjective Interval history: Follow-up GI bleed/severe constipation November 07, 2017-patient seen and examined, complains of abdominal pain. States he has had no bowel movement 5 days. Physical Exam Vital signs: Vital Signs 11/06/17 21:04 11/06/17 21:06 11/06/17 23:07 Temperature 97.8 F 97.3 F L Pulse Rate 71 103 H Respiratory Rate 20 20 Blood Pressure 125/59 L 151/101 H Pulse Oximetry 97 97 96 11/07/17 02:55 11/07/17 04:36 11/07/17 04:41 Temperature 98.1 F 98.2 F 98.2 F Pulse Rate 90 90 97 H Respiratory Rate 20 17 19 Blood Pressure 118/68 133/68 133/68 Pulse Oximetry 94 L 94 L 94 L Intake & Output 11/06/17 11/07/17 11/07/17 18:59 06:59 18:59 Intake Total 100 / 100 Balance 100 / 100 Weight 77.111 kg Intake: IV 100 / 100 KCl 20 mEq Premix Inj 20 meq In 100 / 100 100 ml @ 50 mls/hr IV.SIG Q2H [facility] Rx#:[id number] Intake (Blood Product) Amt 0 / 0 Plasma Thawed 5 Day Cp2d Unit 0 / 0 [id number] Plasma Thawed 5 Day Cp2d Unit 0 / 0 [id number] Narrative: GENERAL: NAD SKIN: Warm and dry. HEAD: Normocephalic. EYES: No scleral icterus. No injection or drainage. NECK: Supple, trachea midline. No JVD or lymphadenopathy. CARDIOVASCULAR: Regular rate and rhythm without murmurs, gallops, or rubs. RESPIRATORY: Breath sounds equal bilaterally. No accessory muscle use. GASTROINTESTINAL: Abdomen soft, non-tender, nondistended. MUSCULOSKELETAL: No cyanosis, or edema. BACK: Nontender without obvious deformity. No CVA tenderness. Results - Labs CBC & Chem 7: 11/07/17 12:17 11/07/17 07:39 Laboratory Results - last 24 hr 11/06/17 11/06/17 11/06/17 22:16 22:16 22:16 WBC 10.7 RBC 3.72 L Hgb 12.0 L Hct 35.4 L MCV 95.0 MCH 32.2 MCHC 33.9 RDW 17.5 H Plt Count 218 D MPV 8.8 Neut % (Auto) 88.6 H Lymph % (Auto) 5.4 L [place] % (Auto) 5.8 Eos % (Auto) 0.1 Baso % (Auto) 0.1 Neut # (Auto) 9.5 H Lymph # (Auto) 0.6 L [place] # (Auto) 0.6 Eos # (Auto) 0.0 Baso # (Auto) 0.0 WBC Differential . Differential Comment Auto diff final PT 103.9 H D INR 10.4 H* APTT 70.7 H Sodium 140 Potassium 2.8 L* Chloride 100 Carbon Dioxide 24.6 Anion Gap 15 BUN 26 H Creatinine 0.77 Estimated GFR Greater than 89 POC Glucose Random Glucose 107 H Calcium 9.5 Total Bilirubin 0.6 AST 32 ALT 39 Alkaline Phosphatase 73 Total Protein 7.4 Albumin 3.6 Blood Type Blood Type Recheck Antibody Screen Blood Bank Comment 11/06/17 11/06/17 11/07/17 22:16 23:28 01:00 WBC RBC Hgb Hct MCV MCH MCHC RDW Plt Count MPV Neut % (Auto) Lymph % (Auto) [place] % (Auto) Eos % (Auto) Baso % (Auto) Neut # (Auto) Lymph # (Auto) [place] # (Auto) Eos # (Auto) Baso # (Auto) WBC Differential Differential Comment PT INR APTT Sodium Potassium Chloride Carbon Dioxide Anion Gap BUN Creatinine Estimated GFR POC Glucose 116 H Random Glucose Calcium Total Bilirubin AST ALT Alkaline Phosphatase Total Protein Albumin Blood Type O Negative Blood Type Recheck Required Antibody Screen Negative Blood Bank Comment 11/07/17 11/07/17 11/07/17 07:39 07:39 12:17 WBC 8.9 RBC 3.07 L Hgb 10.1 L 9.7 L Hct 29.3 L 28.3 L MCV 95.5 MCH 32.8 MCHC 34.4 RDW 17.4 H Plt Count 183 MPV 8.9 Neut % (Auto) 79.3 H Lymph % (Auto) 10.3 [place] % (Auto) 9.4 H Eos % (Auto) 0.8 Baso % (Auto) 0.2 Neut # (Auto) 7.1 Lymph # (Auto) 0.9 L [place] # (Auto) 0.8 Eos # (Auto) 0.1 Baso # (Auto) 0.0 WBC Differential . Differential Comment Auto diff final PT INR APTT Sodium 140 Potassium 2.7 L* Chloride 102 Carbon Dioxide 24.2 Anion Gap 14 BUN 21 H Creatinine 0.53 L Estimated GFR Greater than 89 POC Glucose Random Glucose 83 Calcium 8.8 Total Bilirubin AST ALT Alkaline Phosphatase Total Protein Albumin Blood Type Blood Type Recheck Antibody Screen Blood Bank Comment - Imaging Impressions Chest X-Ray 11/06/17 22:02 CONCLUSION: Rotated chest x-ray. There is some increased prominence at the at the right hilar region and in the right upper lobe which could be partially secondary to the rotation. Some degree of consolidation or atelectasis in these regions cannot be excluded. Compression deformities at T5 and T10. Chest CT 11/06/17 23:06 CONCLUSION: 1. Nondisplaced right-sided 3rd-7th rib fractures with angulated fracture of the anterior right second rib. 2. No pneumothorax or pleural effusion. 3. Stable severe compression fracture of T12 vertebral body. 4. Redemonstration of mild upper lobe predominant centrilobular emphysema with stable 4 mm subpleural nodule in the right upper lobe. 5. 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 6. Coronary artery calcifications. Head CT 11/06/17 23:08 CONCLUSION: 1. Stable CT examination of the head. 2. No acute intracranial abnormality. Abdomen X-Ray 11/07/17 00:00 CONCLUSION: No evidence of obstruction. Assessment and Plan - Plan 72-year-old man with GI bleed Constipation - consult gastroenterology - appreciate assistance - constipation meds per protocol, treatment with soapsuds enema, Relistor 1. Manual disimpaction for constipation - serial H&H - monitor results - IV Protonix Pain secondary to clavicular and rib fx - IV Morphine PRN pain Coagulopathy Correction with FFP and plasma COPD - Duonebs as needed for wheezing/SOB - incentive spirometry Hypokalemia -Treated with 60 mEq of K and monitor electrolyte Self-care deficit - consult PT DVT prophylaxis: Bilateral SCDs - INR 10.0
[2017-11-07 19:08] LABS: Hematocrit 30.8 % (39.0-51.0); Hemoglobin 10.5 gm/dL (13.0-17.0)
[2017-11-07 21:02] LABS: Hematocrit 29.2 % (39.0-51.0)
[2017-11-07] MEDS: Zolpidem Tartrate 5 MG Tablet PO PRN (22:51)
[2017-11-08] MEDS: Morphine Inj 4 MG/ML Vial IV.PUSH PRN ×6 (02:12→20:40)
[2017-11-08 05:30] LABS: Baso % (Auto) 0.3 % (0.0-2.0); Eos # (Auto) 0.2 th/mm3 (0.0-0.4); Eos % (Auto) 2.1 % (0.0-4.0); Hematocrit 29.1 % (39.0-51.0); Hemoglobin 9.9 gm/dL (13.0-17.0); Lymph % (Auto) 12.8 % (9.0-44.0); Mean Corpuscular HGB Conc 34.1 % (32.0-36.0); Mean Corpuscular Hemoglobin 32.9 pg (27.0-34.0); Mean Corpuscular Volume 96.5 fL (80.0-100.0); Mean Platelet Volume 8.8 fL (7.0-11.0); Mono # (Auto) 0.8 th/mm3 (0.0-0.9); Mono % (Auto) 9.9 % (0.0-8.0); Neut # (Auto) 6.1 th/mm3 (1.8-7.7); Neut % (Auto) 74.9 % (16.0-70.0); Platelet Count 177 th/mm3 (150-450); Red Blood Count 3.02 mil/mm3 (4.50-5.90); Red Cell Distribution Width 17.2 % (11.6-17.2); White Blood Count 8.2 th/mm3 (4.0-11.0)
[2017-11-08 05:43] LABS: Alanine Aminotransferase 28 U/L (12-78); Albumin 3.1 g/dL (3.4-5.0); Anion Gap 9 meq/L (5-15); Aspartate Aminotransferase 21 U/L (15-37); Blood Urea Nitrogen 17 mg/dL (7-18); Calcium 8.4 mg/dL (8.5-10.1); Carbon Dioxide 27.3 meq/L (21.0-32.0); Chloride 107 meq/L (98-107); Glomerular Filtration Rate Greater Than 89 mL/min (>89); Glucose,Random 83 mg/dL (74-106); Potassium 3.1 meq/L (3.5-5.1); Sodium 143 meq/L (136-145)
[2017-11-08 05:45] LABS: Alkaline Phosphatase 64 U/L (45-117); Total Protein 6.5 g/dL (6.4-8.2)
[2017-11-08 05:55] LABS: INR 1.4 Ratio; Prothrombin Time 14.4 sec (9.8-11.6)
[2017-11-08] MEDS ORDERED: oxyCODONE/Acetaminophen 10/325 Tablet PO PRN (08:57)
[2017-11-08] MEDS ORDERED: Naloxone Inj 0.4 MG/ML Vial IV.PUSH PRN (08:59)
[2017-11-08] MEDS: Pantoprazole Inj 40 MG Vial IV.PUSH SCH (09:22)
[2017-11-08] MEDS: oxyCODONE/Acetaminophen 10/325 Tablet PO PRN ×3 (09:22→22:18)
[2017-11-08] MEDS: Senna/Docusate Sodium 8.6/50 MG Tablet PO SCH ×2 (09:22→20:37)
[2017-11-08] MEDS: amLODIPine 10 MG Tablet PO SCH (10:53)
[2017-11-08] MEDS: Mag Sulf 1 gm/100 ml Premix 100 ML IV.SIG SCH ×2 (11:44→12:37)
[2017-11-08 11:57] LABS: Phosphorus 2.1 mg/dL (2.5-4.9)
--- NOTE | 2017-11-08 12:28 | P.PNIM ---
Subjective Interval history: Mr. Olson is a 72 y/o male with a history of CAD s/p stent, aorta-femoral bypass, hyperlipidemia, hypertension, COPD, and recent fall with rib and clavicle fractures who presented to the ED on 11/06/17 for evaluation of constipation, rectal bleed, and pain from recent fractures. The patient reports severe right lateral rib pain with impaired ability to breath deeply. He reports no BM x 1 week and has seen some rectal bleeding. His INR is 10.4 in ED. The ED doctor was unable to manually disimpact the patient. He is admitted to the [facility] service. Follow-up GI bleed/severe constipation November 07, 2017-patient seen and examined, complains of abdominal pain. States he has had no bowel movement 5 days. 11-08 PAIN MEDS ADJUSTED HAD BOWEL MOVEMENTS HAS PAIN ON RIGHT SIDE OF CHEST AND RIBS DUE TO FRACTURES AND FALL AND HEMATOMA DW RN AND PT PT AND OT TO EVAL AND TREAT COAGULOPATHY IS BETTER Physical Exam Vital signs: Vital Signs 11/07/17 13:24 11/07/17 13:42 11/07/17 14:08 Temperature 98.2 F Pulse Rate 91 H Respiratory Rate 18 18 Blood Pressure 123/95 H Pulse Oximetry 93 L 93 L 11/07/17 15:18 11/07/17 16:12 11/07/17 20:00 Temperature 98 F 98.7 F Pulse Rate 93 H 96 H 88 Respiratory Rate 18 20 Blood Pressure 127/72 121/70 Pulse Oximetry 94 L 92 L 11/07/17 20:01 11/07/17 21:15 11/08/17 00:00 Temperature 98.4 F Pulse Rate 93 H 84 Respiratory Rate 10 L 16 Blood Pressure 119/73 Pulse Oximetry 93 L 11/08/17 00:19 11/08/17 04:00 11/08/17 04:03 Temperature 98.5 F Pulse Rate 81 82 76 Respiratory Rate 20 Blood Pressure 119/69 Pulse Oximetry 93 L 11/08/17 07:00 11/08/17 07:51 11/08/17 10:53 Temperature 97.7 F 98.1 F Pulse Rate 68 91 H 86 Respiratory Rate 18 18 Blood Pressure 121/81 123/68 Pulse Oximetry 92 L 92 L 11/08/17 11:00 11/08/17 11:44 Temperature Pulse Rate 92 H Respiratory Rate 18 Blood Pressure Pulse Oximetry Intake & Output 07/12/18 07/13/18 07/13/18 18:59 06:59 18:59 Intake Total 460 / 460 Output Total 400 / 400 Balance 460 / 460 -400 / -400 Weight 71 kg 71.3 kg Intake: IV 100 / 100 KCl 20 mEq Premix Inj 20 meq In 100 / 100 100 ml @ 50 mls/hr IV.SIG Q2H DENNY Rx#:[id number] Oral 360 / 360 Output: Urine 400 / 400 Other: # Voids 2 Date of Last Bowel Movement 11/07/17 11/07/17 11/08/17 # Bowel Movements 2 Weight On Admission 71 kg Narrative: GENERAL: MODERATE DISTRESS AND TENDERNESS ON RIGHT SIDE OF CHEST WHERE HE FELL SKIN: Warm and dry. LARGE ECCHYMOSIS AND HEMATOMA RIGHT CHEST/RIBS AREA HEAD: Normocephalic. Atraumatic EYES: No scleral icterus. No injection or drainage. NECK: Supple, trachea midline. No JVD or lymphadenopathy. CARDIOVASCULAR: Regular rate and rhythm without murmurs, gallops, or rubs. S1- S2 no S3 or S4 RESPIRATORY: Breath sounds equal bilaterally. No accessory muscle use. GASTROINTESTINAL: Abdomen soft, non-tender, nondistended. MUSCULOSKELETAL: No cyanosis, or edema. BACK: Nontender without obvious deformity. No CVA tenderness. Very tender on right side ribs with hematoma and ecchymosis Insight and judgment is good Mood and behavior is appropriate Results - Labs CBC & Chem 7: 11/08/17 04:34 11/08/17 04:34 Laboratory Results - last 24 hr 11/07/17 11/07/17 11/07/17 12:17 18:40 20:41 WBC RBC Hgb 9.7 L 10.5 L 10.0 L Hct 28.3 L 30.8 L 29.2 L MCV MCH MCHC RDW Plt Count MPV Neut % (Auto) Lymph % (Auto) [place] % (Auto) Eos % (Auto) Baso % (Auto) Neut # (Auto) Lymph # (Auto) [place] # (Auto) Eos # (Auto) Baso # (Auto) WBC Differential Differential Comment PT INR Sodium Potassium Chloride Carbon Dioxide Anion Gap BUN Creatinine Estimated GFR Random Glucose Calcium Phosphorus Magnesium Total Bilirubin AST ALT Alkaline Phosphatase Total Protein Albumin 11/08/17 11/08/17 11/08/17 04:34 04:34 04:34 WBC 8.2 RBC 3.02 L Hgb 9.9 L Hct 29.1 L MCV 96.5 MCH 32.9 MCHC 34.1 RDW 17.2 Plt Count 177 MPV 8.8 Neut % (Auto) 74.9 H Lymph % (Auto) 12.8 [place] % (Auto) 9.9 H Eos % (Auto) 2.1 Baso % (Auto) 0.3 Neut # (Auto) 6.1 Lymph # (Auto) 1.0 [place] # (Auto) 0.8 Eos # (Auto) 0.2 Baso # (Auto) 0.0 WBC Differential . Differential Comment Auto diff final PT 14.4 H D INR 1.4 Sodium 143 Potassium 3.1 L Chloride 107 Carbon Dioxide 27.3 Anion Gap 9 BUN 17 Creatinine 0.56 L Estimated GFR Greater than 89 Random Glucose 83 Calcium 8.4 L Phosphorus Magnesium Total Bilirubin 0.6 AST 21 ALT 28 Alkaline Phosphatase 64 Total Protein 6.5 D Albumin 3.1 L 11/08/17 04:34 WBC RBC Hgb Hct MCV MCH MCHC RDW Plt Count MPV Neut % (Auto) Lymph % (Auto) [place] % (Auto) Eos % (Auto) Baso % (Auto) Neut # (Auto) Lymph # (Auto) [place] # (Auto) Eos # (Auto) Baso # (Auto) WBC Differential Differential Comment PT INR Sodium Potassium Chloride Carbon Dioxide Anion Gap BUN Creatinine Estimated GFR Random Glucose Calcium Phosphorus 2.1 L Magnesium 2.0 Total Bilirubin AST ALT Alkaline Phosphatase Total Protein Albumin - Imaging ITS Impressions Chest X-Ray 11/06/17 22:02 CONCLUSION: Rotated chest x-ray. There is some increased prominence at the at the right hilar region and in the right upper lobe which could be partially secondary to the rotation. Some degree of consolidation or atelectasis in these regions cannot be excluded. Compression deformities at T5 and T10. Chest CT 11/06/17 23:06 CONCLUSION: 1. Nondisplaced right-sided 3rd-7th rib fractures with angulated fracture of the anterior right second rib. 2. No pneumothorax or pleural effusion. 3. Stable severe compression fracture of T12 vertebral body. 4. Redemonstration of mild upper lobe predominant centrilobular emphysema with stable 4 mm subpleural nodule in the right upper lobe. 5. 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 6. Coronary artery calcifications. Head CT 11/06/17 23:08 CONCLUSION: 1. Stable CT examination of the head. 2. No acute intracranial abnormality. Abdomen X-Ray 11/07/17 00:00 CONCLUSION: No evidence of obstruction. Assessment and Plan - Plan 72-year-old man with GI bleed Constipation - consult gastroenterology - appreciate assistance - constipation meds per protocol, treatment with soapsuds enema, Relistor 1. Manual disimpaction for constipation - serial H&H - monitor results - IV Protonix Pain secondary to clavicular and rib fx - IV Morphine PRN pain Coagulopathy Correction with FFP and plasma COPD - Duonebs as needed for wheezing/SOB - incentive spirometry Hypokalemia -Treated with 60 mEq of K and monitor electrolyte -Still low will treat again NEEDS GOOD CHRONIC BOWEL REGIMENT DUE TO CONSTIPATION FROM PAIN MEDS Self-care deficit - consult PT ADVANCE DIET DVT prophylaxis: Bilateral SCDs - INR 10.0 Code Status: FULL CODE Discussed Condition With: RN AND PT AND CM Discharge Planning: ONCE PAIN IS CONTROLLED AND CLEARED BY GI
--- NOTE | 2017-11-08 12:31 | P.PNGI ---
Subjective Interval history: Patient is awake resting in the bed answer simple questions appropriately Ice pack right shoulder secondary to fall and fractured ribs approximately 2 weeks ago according to patient Patient denies any nausea vomiting dyspepsia or dysphasia no obvious bleeding Mild right sided abdominal discomfort to light palpation Rectal bleeding has gradually decreased to a minimum amount today PT/INR 1.4, hemoglobin 9.9 <Neda Torrez - Last Filed: 11/08/17 12:32> Physical Exam Vital signs: Vital Signs 11/07/17 13:24 11/07/17 13:42 11/07/17 14:08 Temperature 98.2 F Pulse Rate 91 H Respiratory Rate 18 18 Blood Pressure 123/95 H Pulse Oximetry 93 L 93 L 11/07/17 15:18 11/07/17 16:12 11/07/17 20:00 Temperature 98 F 98.7 F Pulse Rate 93 H 96 H 88 Respiratory Rate 18 20 Blood Pressure 127/72 121/70 Pulse Oximetry 94 L 92 L 11/07/17 20:01 11/07/17 21:15 11/08/17 00:00 Temperature 98.4 F Pulse Rate 93 H 84 Respiratory Rate 10 L 16 Blood Pressure 119/73 Pulse Oximetry 93 L 11/08/17 00:19 11/08/17 04:00 11/08/17 04:03 Temperature 98.5 F Pulse Rate 81 82 76 Respiratory Rate 20 Blood Pressure 119/69 Pulse Oximetry 93 L 11/08/17 07:00 11/08/17 07:51 11/08/17 10:53 Temperature 97.7 F 98.1 F Pulse Rate 68 91 H 86 Respiratory Rate 18 18 Blood Pressure 121/81 123/68 Pulse Oximetry 92 L 92 L 11/08/17 11:00 11/08/17 11:44 Temperature Pulse Rate 92 H Respiratory Rate 18 Blood Pressure Pulse Oximetry Intake & Output 11/07/17 11/08/17 11/08/17 18:59 06:59 18:59 Intake Total 460 / 460 Output Total 400 / 400 Balance 460 / 460 -400 / -400 Weight 71 kg 71.3 kg Intake: IV 100 / 100 KCl 20 mEq Premix Inj 20 meq In 100 / 100 100 ml @ 50 mls/hr IV.SIG Q2H DENNY Rx#:[id number] Oral 360 / 360 Output: Urine 400 / 400 Other: # Voids 2 Date of Last Bowel Movement 11/07/17 11/07/17 11/08/17 # Bowel Movements 2 Weight On Admission 71 kg - Constitutional no acute distress - Routine HEENT Exam Head: Present: normocephalic, atraumatic ENT: Present: mucous membranes moist - Routine Neck Exam Present: supple - Routine Respiratory Exam Present: decreased breath sounds (Mild but no obvious rhonchi or wheezing) - Routine Abdominal Exam Present: soft, normoactive bowel sounds (Soft bowel sounds), tenderness (Right upper quadrant and right mid quadrant discomfort to light palpation) - Routine Neurological Exam Present: alert (Awake answer simple questions appropriately fairly good historian) - Detailed Neurological Exam: Coma Scale Eye Opening: Spontaneous - Routine Psychiatric Exam Present: normal affect <Neda Torrez - Last Filed: 11/08/17 12:32> Vital signs: Vital Signs 11/07/17 13:42 11/07/17 14:08 11/07/17 15:18 Temperature 98 F Pulse Rate 93 H Respiratory Rate 18 18 Blood Pressure 127/72 Pulse Oximetry 93 L 94 L 11/07/17 16:12 11/07/17 20:00 11/07/17 20:01 Temperature 98.7 F Pulse Rate 96 H 88 93 H Respiratory Rate 20 Blood Pressure 121/70 Pulse Oximetry 92 L 11/07/17 21:15 11/08/17 00:00 11/08/17 00:19 Temperature 98.4 F Pulse Rate 84 81 Respiratory Rate 10 L 16 Blood Pressure 119/73 Pulse Oximetry 93 L 11/08/17 04:00 11/08/17 04:03 11/08/17 07:00 Temperature 98.5 F Pulse Rate 82 76 68 Respiratory Rate 20 Blood Pressure 119/69 Pulse Oximetry 93 L 11/08/17 07:51 11/08/17 10:53 11/08/17 11:00 Temperature 97.7 F 98.1 F Pulse Rate 91 H 86 92 H Respiratory Rate 18 18 Blood Pressure 121/81 123/68 Pulse Oximetry 92 L 92 L 11/08/17 11:44 Temperature Pulse Rate Respiratory Rate 18 Blood Pressure Pulse Oximetry Intake & Output 11/07/17 11/08/17 11/08/17 18:59 06:59 18:59 Intake Total 460 / 460 100 / 100 Output Total 400 / 400 Balance 460 / 460 -300 / -300 Weight 71 kg 71.3 kg Intake: IV 100 / 100 100 / 100 Magnesium Sulfate 1 gm/D5W 100 100 / 100 ml Premix 100 ML @ 100 mls/hr IV.SIG Q1H DENNY Rx#:[id number] KCl 20 mEq Premix Inj 20 meq In 100 / 100 100 ml @ 50 mls/hr IV.SIG Q2H DENNY Rx#:[id number] Oral 360 / 360 Output: Urine 400 / 400 Other: # Voids 2 Date of Last Bowel Movement 11/07/17 11/07/17 11/08/17 # Bowel Movements 2 Weight On Admission 71 kg <Corby Cornejo - Last Filed: 11/08/17 13:25> Results - Labs CBC & Chem 7: 11/08/17 04:34 11/08/17 04:34 Laboratory Results - last 24 hr 11/07/17 11/07/17 11/07/17 12:17 18:40 20:41 WBC RBC Hgb 9.7 L 10.5 L 10.0 L Hct 28.3 L 30.8 L 29.2 L MCV MCH MCHC RDW Plt Count MPV Neut % (Auto) Lymph % (Auto) [place] % (Auto) Eos % (Auto) Baso % (Auto) Neut # (Auto) Lymph # (Auto) [place] # (Auto) Eos # (Auto) Baso # (Auto) WBC Differential Differential Comment PT INR Sodium Potassium Chloride Carbon Dioxide Anion Gap BUN Creatinine Estimated GFR Random Glucose Calcium Phosphorus Magnesium Total Bilirubin AST ALT Alkaline Phosphatase Total Protein Albumin 11/08/17 11/08/17 11/08/17 04:34 04:34 04:34 WBC 8.2 RBC 3.02 L Hgb 9.9 L Hct 29.1 L MCV 96.5 MCH 32.9 MCHC 34.1 RDW 17.2 Plt Count 177 MPV 8.8 Neut % (Auto) 74.9 H Lymph % (Auto) 12.8 [place] % (Auto) 9.9 H Eos % (Auto) 2.1 Baso % (Auto) 0.3 Neut # (Auto) 6.1 Lymph # (Auto) 1.0 [place] # (Auto) 0.8 Eos # (Auto) 0.2 Baso # (Auto) 0.0 WBC Differential . Differential Comment Auto diff final PT 14.4 H D INR 1.4 Sodium 143 Potassium 3.1 L Chloride 107 Carbon Dioxide 27.3 Anion Gap 9 BUN 17 Creatinine 0.56 L Estimated GFR Greater than 89 Random Glucose 83 Calcium 8.4 L Phosphorus Magnesium Total Bilirubin 0.6 AST 21 ALT 28 Alkaline Phosphatase 64 Total Protein 6.5 D Albumin 3.1 L 11/08/17 04:34 WBC RBC Hgb Hct MCV MCH MCHC RDW Plt Count MPV Neut % (Auto) Lymph % (Auto) [place] % (Auto) Eos % (Auto) Baso % (Auto) Neut # (Auto) Lymph # (Auto) [place] # (Auto) Eos # (Auto) Baso # (Auto) WBC Differential Differential Comment PT INR Sodium Potassium Chloride Carbon Dioxide Anion Gap BUN Creatinine Estimated GFR Random Glucose Calcium Phosphorus 2.1 L Magnesium 2.0 Total Bilirubin AST ALT Alkaline Phosphatase Total Protein Albumin <Neda Torrez Nilda - Last Filed: 11/08/17 12:32> - Labs CBC & Chem 7: 11/08/17 04:34 11/08/17 04:34 Laboratory Results - last 24 hr 11/07/17 11/07/17 11/08/17 18:40 20:41 04:34 WBC 8.2 RBC 3.02 L Hgb 10.5 L 10.0 L 9.9 L Hct 30.8 L 29.2 L 29.1 L MCV 96.5 MCH 32.9 MCHC 34.1 RDW 17.2 Plt Count 177 MPV 8.8 Neut % (Auto) 74.9 H Lymph % (Auto) 12.8 [place] % (Auto) 9.9 H Eos % (Auto) 2.1 Baso % (Auto) 0.3 Neut # (Auto) 6.1 Lymph # (Auto) 1.0 [place] # (Auto) 0.8 Eos # (Auto) 0.2 Baso # (Auto) 0.0 WBC Differential . Differential Comment Auto diff final PT INR Sodium Potassium Chloride Carbon Dioxide Anion Gap BUN Creatinine Estimated GFR Random Glucose Calcium Phosphorus Magnesium Total Bilirubin AST ALT Alkaline Phosphatase Total Protein Albumin 11/08/17 11/08/17 11/08/17 04:34 04:34 04:34 WBC RBC Hgb Hct MCV MCH MCHC RDW Plt Count MPV Neut % (Auto) Lymph % (Auto) [place] % (Auto) Eos % (Auto) Baso % (Auto) Neut # (Auto) Lymph # (Auto) [place] # (Auto) Eos # (Auto) Baso # (Auto) WBC Differential Differential Comment PT 14.4 H D INR 1.4 Sodium 143 Potassium 3.1 L Chloride 107 Carbon Dioxide 27.3 Anion Gap 9 BUN 17 Creatinine 0.56 L Estimated GFR Greater than 89 Random Glucose 83 Calcium 8.4 L Phosphorus 2.1 L Magnesium 2.0 Total Bilirubin 0.6 AST 21 ALT 28 Alkaline Phosphatase 64 Total Protein 6.5 D Albumin 3.1 L <Corby Cornejo - Last Filed: 11/08/17 13:25> Assessment and Plan (1) Acute GI bleeding Status: Acute Code(s): K92.2 - Gastrointestinal hemorrhage, unspecified (2) Constipation Status: Acute Code(s): K59.00 - Constipation, unspecified - Plan Assessment: Admission - Constipation began about one week ago, but states symptoms began after starting opioid pain medication for a rib fracture after a fall, pt was seen in ER for this on 11/02. Reports some incontinent loose stool but unable to have any solid stool. Pain in rectum with attempted bowel movement. Also reports some BRB clots, approximately 3 episodes of this. Denies history of GIB. Has never had EGD or colonoscopy. Denies associated abdominal pain, nausea, vomiting. - Supratherapeutic INR- INR 10.4- on Coumadin -CAD S/P stents x 3, history of DVT, history of aorto-femoral bypass 11/08/2017 patient is resting in the bed and denies any upper GI distress or symptoms. Patient does note some right-sided and right upper quadrant discomfort to mild palpation on exam. Patient states AAA approximately 12 years ago, has been on Coumadin therapy for many years unsure timing. Rectal bleeding has pretty much subsided except for some mild oozing patient states. History of constipation with some straining recently labs showed current INR 1.4 , hemoglobin 9.9. Denies any other obvious bleeding Abdominal x-rays done on 11/07/2017 show no obstruction. With normal bowel gas pattern and no abnormal masses structures are unremarkable aortic stent graft in place. Discussed with patient the need for colonoscopy to evaluate his chronic constipation and rectal bleeding. Currently patient is refusing colonoscopy and or wants to hold off at least 24 hours to reevaluate whether the rectal bleeding will subside. Patient has monitoring of intake and output and 2 bowel movements noted on 11/08/2017. Plan: Diet per attending patient should be able to eat solid foods now PPI Bowel regimen as needed, and Kristina-Colace [address] of abdomen and pelvis pending Consider sigmoidoscopy or colonoscopy if rectal bleeding persist and patient will agree Further recommendations to follow Patient was seen per myself and Dr. Cornejo, this note was written on his behalf <Neda Torrez - Last Filed: 11/08/17 12:32> (1) Acute GI bleeding Status: Acute Code(s): K92.2 - Gastrointestinal hemorrhage, unspecified (2) Constipation Status: Acute Code(s): K59.00 - Constipation, unspecified - Attending Attestation Agree with above assessment and plan. Will follow up with you as needed. <Corby Cornejo - Last Filed: 11/08/17 13:25>
[2017-11-08] MEDS: Polyethylene Glycol 3350 17 GM Packet PO SCH (13:03)
--- NOTE | 2017-11-08 21:52 | CT ---
EXAM DATE: 11/08/2017 9:29 PM EDT AGE/SEX: 72 years / Male INDICATIONS: Abdominal pain, constipation. CLINICAL DATA: This is the patient's initial encounter. Patient reports that signs and symptoms have been present for 1 day and indicates a pain score of 4/10. MEDICAL/SURGICAL HISTORY: Hypertension. Deep venous thrombosis. Cardiovascular disease. 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 None. ORAL CONTRAST: No oral contrast ingested. RADIATION DOSE: 10.62 CTDI (mGy) COMPARISON: No prior exams available for comparison. TECHNIQUE: Multiple contiguous axial images were obtained through the abdomen and pelvis following b olus infusion of 95 ml Omnipaque 350 (iohexol) nonionic water-soluble contrast as a single exam dos e. No oral contrast ingested. Using automated exposure control and adjustment of the mA and/or kV ac cording to patient size, radiation dose was kept as low as reasonably achievable to obtain optimal di agnostic quality images. DICOM format image data is available electronically for review and comparis on. FINDINGS: Lower Lungs: The visualized lower lungs are clear. Liver: The liver has a homogeneous density without space-occupying lesion. There is no dilation of th e biliary tree. Spleen: Homogeneous density without enlargement. Pancreas: Unremarkable without mass or calcification. Kidneys: There is normal enhancement both kidneys. There are multiple small calcified patients in th e central aspect of the left kidney likely related to nonobstructing stones. Adrenal Glands: Unremarkable. Aorta: There is a patent aortic stent graft in place. The left external iliac artery appears paten t. There appears to be diminished contrast within the right common iliac artery. There is a a patent femorofemoral bypass graft. Bowel/Mesentery: The bowel loops are grossly unremarkable. The cecum and sigmoid colon have a normal configuration. Abdominal Wall: Intact. Retroperitoneum: No evidence of adenopathy in the retrocrural, para-aortic, or deep pelvic regions. Bladder: Contours are smooth. Reproductive Organs: No abnormal masses or calcifications seen. Inguinal: The inguinal region is unremarkable without evidence of adenopathy. Bony Structures: There is degenerative change in the lumbar spine. CONCLUSION: 1. No acute abnormality seen. 2. Atherosclerotic change with a patent aortic stent graft. There appears to be diminished flow or o bstruction of the right common iliac artery. There is a patent femoral-femoral bypass graft present. 3. Suspected nonobstructing left renal stones. Electronically signed by: Juanjo Leigh MD 11/08/2017 9:51 PM EDT
[2017-11-08] MEDS: Zolpidem Tartrate 5 MG Tablet PO PRN (22:56)
[2017-11-09] MEDS: Morphine Inj 4 MG/ML Vial IV.PUSH PRN ×7 (02:24→21:25)
[2017-11-09] MEDS: oxyCODONE/Acetaminophen 10/325 Tablet PO PRN ×4 (04:27→23:19)
[2017-11-09 06:23] LABS: Baso % (Auto) 0.5 % (0.0-2.0); Eos # (Auto) 0.3 th/mm3 (0.0-0.4); Eos % (Auto) 4.7 % (0.0-4.0); Hematocrit 31.4 % (39.0-51.0); Hemoglobin 10.6 gm/dL (13.0-17.0); Lymph % (Auto) 14.3 % (9.0-44.0); Mean Corpuscular HGB Conc 33.7 % (32.0-36.0); Mean Corpuscular Hemoglobin 32.8 pg (27.0-34.0); Mean Corpuscular Volume 97.4 fL (80.0-100.0); Mean Platelet Volume 8.9 fL (7.0-11.0); Mono # (Auto) 0.7 th/mm3 (0.0-0.9); Mono % (Auto) 10.1 % (0.0-8.0); Neut % (Auto) 70.4 % (16.0-70.0); Platelet Count 213 th/mm3 (150-450); Red Blood Count 3.23 mil/mm3 (4.50-5.90); Red Cell Distribution Width 17.4 % (11.6-17.2); White Blood Count 7.1 th/mm3 (4.0-11.0)
[2017-11-09 06:46] LABS: INR 1.1 Ratio
[2017-11-09 06:50] LABS: Albumin 3.4 g/dL (3.4-5.0); Anion Gap 10 meq/L (5-15); Aspartate Aminotransferase 18 U/L (15-37); Blood Urea Nitrogen 13 mg/dL (7-18); Calcium 8.6 mg/dL (8.5-10.1); Carbon Dioxide 26.5 meq/L (21.0-32.0); Chloride 106 meq/L (98-107); Glucose,Random 100 mg/dL (74-106); Magnesium 2.2 mg/dL (1.5-2.5); Potassium 3.7 meq/L (3.5-5.1); Sodium 142 meq/L (136-145)
[2017-11-09 06:59] LABS: Alanine Aminotransferase 29 U/L (12-78); Alkaline Phosphatase 70 U/L (45-117); Free T4 (Free Thyroxine) 1.36 ng/dL (0.76-1.46); Glomerular Filtration Rate Greater Than 89 mL/min (>89); Phosphorus 2.6 mg/dL (2.5-4.9); Total Protein 6.8 g/dL (6.4-8.2)
--- NOTE | 2017-11-09 08:30 | P.PN ---
Subjective Interval history: Follow-up rectal bleeding, constipation and right rib pain. Noted small amount of blood in the stool today. Denies constipation. Still has rib pain but able to ambulate the hallway. Physical Exam Vital signs: Vital Signs 11/08/17 10:53 11/08/17 11:00 11/08/17 11:44 Temperature 98.1 F Pulse Rate 86 92 H Respiratory Rate 18 18 Blood Pressure 123/68 Pulse Oximetry 92 L 11/08/17 15:00 11/08/17 15:35 11/08/17 15:39 Temperature 97.6 F Pulse Rate 95 H 89 Respiratory Rate 18 18 Blood Pressure 142/60 H Pulse Oximetry 96 11/08/17 17:38 11/08/17 18:30 11/08/17 19:55 Temperature 98 F Pulse Rate 85 Respiratory Rate 18 18 18 Blood Pressure 131/75 Pulse Oximetry 93 L 11/08/17 22:19 11/09/17 00:00 Temperature 97.3 F L Pulse Rate 86 Respiratory Rate 18 18 Blood Pressure 133/80 Pulse Oximetry 94 L Intake & Output 11/08/17 11/09/17 11/09/17 18:59 06:59 18:59 Intake Total 200 / 200 1440 / 1440 Output Total 400 / 400 200 / 200 Balance -200 / -200 1240 / 1240 Intake: IV 200 / 200 Magnesium Sulfate 1 gm/D5W 100 200 / 200 ml Premix 100 ML @ 100 mls/hr IV.SIG Q1H DENNY Rx#:[id number] Oral 1440 / 1440 Output: Urine 400 / 400 200 / 200 Other: # Voids 2 Date of Last Bowel Movement 11/08/17 11/08/17 # Bowel Movements 1 Narrative: GENERAL: Well-developed well-nourished SKIN: Warm and dry. Large ecchymosis right chest which is tender CARDIOVASCULAR: Regular rate and rhythm without murmurs, gallops, or rubs. S1- S2 no S3 or S4 RESPIRATORY: Breath sounds equal bilaterally. No accessory muscle use. GASTROINTESTINAL: Abdomen soft, non-tender, nondistended. MUSCULOSKELETAL: No cyanosis, or edema. BACK: Nontender without obvious deformity. No CVA tenderness. Results - Labs CBC & Chem 7: 11/09/17 04:31 11/09/17 04:31 Laboratory Results - last 24 hr 11/08/17 11/09/1711/09/18 04:34 04:31 04:31 WBC 7.1 RBC 3.23 L Hgb 10.6 L Hct 31.4 L MCV 97.4 MCH 32.8 MCHC 33.7 RDW 17.4 H Plt Count 213 MPV 8.9 Neut % (Auto) 70.4 H Lymph % (Auto) 14.3 [place] % (Auto) 10.1 H Eos % (Auto) 4.7 H Baso % (Auto) 0.5 Neut # (Auto) 5.0 Lymph # (Auto) 1.0 [place] # (Auto) 0.7 Eos # (Auto) 0.3 Baso # (Auto) 0.0 WBC Differential . Differential Comment Auto diff final PT INR Sodium 142 Potassium 3.7 Chloride 106 Carbon Dioxide 26.5 Anion Gap 10 BUN 13 Creatinine 0.49 L Estimated GFR Greater than 89 Random Glucose 100 Calcium 8.6 Phosphorus 2.1 L 2.6 Magnesium 2.0 2.2 Total Bilirubin 0.6 AST 18 ALT 29 Alkaline Phosphatase 70 Total Protein 6.8 Albumin 3.4 TSH 3.200 Free T4 1.36 11/09/17 04:31 WBC RBC Hgb Hct MCV MCH MCHC RDW Plt Count MPV Neut % (Auto) Lymph % (Auto) [place] % (Auto) Eos % (Auto) Baso % (Auto) Neut # (Auto) Lymph # (Auto) [place] # (Auto) Eos # (Auto) Baso # (Auto) WBC Differential Differential Comment PT 11.0 INR 1.1 Sodium Potassium Chloride Carbon Dioxide Anion Gap BUN Creatinine Estimated GFR Random Glucose Calcium Phosphorus Magnesium Total Bilirubin AST ALT Alkaline Phosphatase Total Protein Albumin TSH Free T4 - Imaging Impressions Abdomen/Pelvis CT 11/08/17 00:00 CONCLUSION: 1. No acute abnormality seen. 2. Atherosclerotic change with a patent aortic stent graft. There appears to be diminished flow or obstruction of the right common iliac artery. There is a patent femoral-femoral bypass graft present. 3. Suspected nonobstructing left renal stones. ITS Impressions Chest X-Ray 11/06/17 22:02 CONCLUSION: Rotated chest x-ray. There is some increased prominence at the at the right hilar region and in the right upper lobe which could be partially secondary to the rotation. Some degree of consolidation or atelectasis in these regions cannot be excluded. Compression deformities at T5 and T10. Chest CT 11/06/17 23:06 CONCLUSION: 1. Nondisplaced right-sided 3rd-7th rib fractures with angulated fracture of the anterior right second rib. 2. No pneumothorax or pleural effusion. 3. Stable severe compression fracture of T12 vertebral body. 4. Redemonstration of mild upper lobe predominant centrilobular emphysema with stable 4 mm subpleural nodule in the right upper lobe. 5. 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 6. Coronary artery calcifications. Head CT 11/06/17 23:08 CONCLUSION: 1. Stable CT examination of the head. 2. No acute intracranial abnormality. Abdomen X-Ray 11/07/17 00:00 CONCLUSION: No evidence of obstruction. - Procedures none Assessment and Plan - Assessment (1) Acute GI bleeding Code(s): K92.2 - Gastrointestinal hemorrhage, unspecified Status: Acute (2) Constipation Code(s): K59.00 - Constipation, unspecified Status: Acute (3) Abnormal INR Code(s): R79.1 - Abnormal coagulation profile Status: Acute (4) Closed rib fracture Code(s): S22.39XA - Fracture of one rib, unspecified side, initial encounter for closed fracture Status: Acute - Plan 72-year-old man with GI bleed Constipation - consult gastroenterology - appreciate assistance - constipation meds per protocol, treatment with soapsuds enema, Relistor 1. Manual disimpaction for constipation - serial H&H - monitor results - Improving now with regular BM. Noted small amount of blood in stool today Pain secondary to rib fx - Percocet and. Counseled regarding narcotics IV Morphine PRN pain Coagulopathy. Resolved Correction with FFP and plasma COPD - Duonebs as needed for wheezing/SOB - incentive spirometry Hypokalemia -Corrected Self-care deficit - consult PT DVT prophylaxis: Bilateral SCDs Hx DVT restart coumadin when bleeding resolves Discharge Planning: Dc home in am if no more bleeding. Hope he will agree with Cscope if bleeding persists
--- NOTE | 2017-11-09 08:32 | P.DCO ---
- Physical Therapy Order: Evaluate and treat, Improve ambulation, Strength and gait training - Home Health Nursing Order: Medical education, Medication education-adverse effect, Nursing assessment with vital signs - Certification I have seen patient Guzman Kovacs on 11/09/17. My clinical findings support the need for the requested home health care services because: Deconditioned with increased weakness I certify that my clinical findings support that this patient is homebound because: Hx COPD - exertion dyspnea/weakness, Poor cardiac reserve
[2017-11-09] MEDS: amLODIPine 10 MG Tablet PO SCH (08:41)
[2017-11-09] MEDS: Pantoprazole Inj 40 MG Vial IV.PUSH SCH (08:42)
[2017-11-09] MEDS: Polyethylene Glycol 3350 17 GM Packet PO SCH (08:42)
[2017-11-09] MEDS: Senna/Docusate Sodium 8.6/50 MG Tablet PO SCH ×2 (08:51→20:23)
[2017-11-09 11:39] LABS: Hemoglobin A1c 5.4 % (4.3-6.0)
--- NOTE | 2017-11-09 12:46 | P.PNGI ---
Subjective Interval history: Pt in bedside chair. States still having small amount of BRB in stool. Pt refusing colonoscopy. Discussed with him differentials could be as severe as colon cancer and he states he understands the risks and is still not willing to have colonoscopy. States no longer having issues with constipation. Denies nausea, vomiting, abdominal pain. <Angela Ovalles - Last Filed: 11/09/17 12:41> Physical Exam Vital signs: Vital Signs 11/08/17 15:00 11/08/17 15:35 11/08/17 15:39 Temperature 97.6 F Pulse Rate 95 H 89 Respiratory Rate 18 18 Blood Pressure 142/60 H Pulse Oximetry 96 11/08/17 17:38 11/08/17 18:30 11/08/17 19:55 Temperature 98 F Pulse Rate 85 Respiratory Rate 18 18 18 Blood Pressure 131/75 Pulse Oximetry 93 L 11/08/17 22:19 11/09/17 00:00 11/09/17 08:00 Temperature 97.3 F L 97.9 F Pulse Rate 86 75 Respiratory Rate 18 18 19 Blood Pressure 133/80 122/58 L Pulse Oximetry 94 L 93 L 11/09/17 08:42 11/09/17 08:43 11/09/17 11:15 Temperature Pulse Rate Respiratory Rate 18 18 Blood Pressure Pulse Oximetry 94 L Intake & Output 11/08/17 11/09/17 11/09/17 18:59 06:59 18:59 Intake Total 200 / 200 1440 / 1440 Output Total 400 / 400 200 / 200 Balance -200 / -200 1240 / 1240 Intake: IV 200 / 200 Magnesium Sulfate 1 gm/D5W 100 200 / 200 ml Premix 100 ML @ 100 mls/hr IV.SIG Q1H DENNY Rx#:[id number] Oral 1440 / 1440 Output: Urine 400 / 400 200 / 200 Other: # Voids 2 Date of Last Bowel Movement 11/08/17 11/08/17 # Bowel Movements 1 - Constitutional no acute distress - Routine HEENT Exam Head: Present: normocephalic, atraumatic - Routine Respiratory Exam Absent: accessory muscle use - Routine Abdominal Exam Present: soft, normoactive bowel sounds. Absent: tenderness, distended, rebound , guarding - Routine Skin Exam Present: dry, warm Comments: bruising R chest - Routine Neurological Exam Present: alert, oriented X3 <Angela Ovalles - Last Filed: 11/09/17 12:41> Vital signs: Vital Signs 11/08/17 22:19 11/09/17 00:00 11/09/17 08:00 Temperature 97.3 F L 97.9 F Pulse Rate 86 75 Respiratory Rate 18 18 19 Blood Pressure 133/80 122/58 L Pulse Oximetry 94 L 93 L 11/09/17 08:42 11/09/17 08:43 11/09/17 11:15 Temperature Pulse Rate Respiratory Rate 18 18 Blood Pressure Pulse Oximetry 94 L 11/09/17 12:00 11/09/17 12:51 11/09/17 16:00 Temperature 97.7 F 97.5 F L Pulse Rate 86 85 Respiratory Rate 18 18 18 Blood Pressure 131/74 135/64 Pulse Oximetry 93 L 93 L 11/09/17 20:00 Temperature 98.3 F Pulse Rate 92 H Respiratory Rate 18 Blood Pressure 124/64 Pulse Oximetry 93 L Intake & Output 11/09/17 11/09/17 11/10/17 06:59 18:59 06:59 Intake Total 1440 / 1440 900 / 900 Output Total 200 / 200 Balance 1240 / 1240 900 / 900 Intake: Oral 1440 / 1440 900 / 900 Output: Urine 200 / 200 Other: # Voids 2 3 Date of Last Bowel Movement 11/08/17 11/08/17 # Bowel Movements 1 <Corby Cornejo - Last Filed: 11/09/17 21:02> Results - Labs CBC & Chem 7: 11/09/17 04:31 11/09/17 04:31 Laboratory Results - last 24 hr 11/09/17 11/09/17 11/09/17 04:31 04:31 04:31 WBC 7.1 RBC 3.23 L Hgb 10.6 L Hct 31.4 L MCV 97.4 MCH 32.8 MCHC 33.7 RDW 17.4 H Plt Count 213 MPV 8.9 Neut % (Auto) 70.4 H Lymph % (Auto) 14.3 [place] % (Auto) 10.1 H Eos % (Auto) 4.7 H Baso % (Auto) 0.5 Neut # (Auto) 5.0 Lymph # (Auto) 1.0 [place] # (Auto) 0.7 Eos # (Auto) 0.3 Baso # (Auto) 0.0 WBC Differential . Differential Comment Auto diff final PT 11.0 INR 1.1 Sodium 142 Potassium 3.7 Chloride 106 Carbon Dioxide 26.5 Anion Gap 10 BUN 13 Creatinine 0.49 L Estimated GFR Greater than 89 Random Glucose 100 Calcium 8.6 Phosphorus 2.6 Magnesium 2.2 Total Bilirubin 0.6 AST 18 ALT 29 Alkaline Phosphatase 70 Total Protein 6.8 Albumin 3.4 TSH 3.200 Free T4 1.36 - Imaging Impressions Abdomen/Pelvis CT 11/08/17 00:00 CONCLUSION: 1. No acute abnormality seen. 2. Atherosclerotic change with a patent aortic stent graft. There appears to be diminished flow or obstruction of the right common iliac artery. There is a patent femoral-femoral bypass graft present. 3. Suspected nonobstructing left renal stones. <Angela Ovalles - Last Filed: 11/09/17 12:41> - Labs CBC & Chem 7: 11/09/17 04:31 11/09/17 04:31 Laboratory Results - last 24 hr 11/09/17 11/09/17 11/09/17 04:31 04:31 04:31 WBC 7.1 RBC 3.23 L Hgb 10.6 L Hct 31.4 L MCV 97.4 MCH 32.8 MCHC 33.7 RDW 17.4 H Plt Count 213 MPV 8.9 Neut % (Auto) 70.4 H Lymph % (Auto) 14.3 [place] % (Auto) 10.1 H Eos % (Auto) 4.7 H Baso % (Auto) 0.5 Neut # (Auto) 5.0 Lymph # (Auto) 1.0 [place] # (Auto) 0.7 Eos # (Auto) 0.3 Baso # (Auto) 0.0 WBC Differential . Differential Comment Auto diff final PT INR Sodium 142 Potassium 3.7 Chloride 106 Carbon Dioxide 26.5 Anion Gap 10 BUN 13 Creatinine 0.49 L Estimated GFR Greater than 89 Random Glucose 100 Hemoglobin A1c 5.4 Calcium 8.6 Phosphorus 2.6 Magnesium 2.2 Total Bilirubin 0.6 AST 18 ALT 29 Alkaline Phosphatase 70 Total Protein 6.8 Albumin 3.4 TSH 3.200 Free T4 1.36 11/09/17 04:31 WBC RBC Hgb Hct MCV MCH MCHC RDW Plt Count MPV Neut % (Auto) Lymph % (Auto) [place] % (Auto) Eos % (Auto) Baso % (Auto) Neut # (Auto) Lymph # (Auto) [place] # (Auto) Eos # (Auto) Baso # (Auto) WBC Differential Differential Comment PT 11.0 INR 1.1 Sodium Potassium Chloride Carbon Dioxide Anion Gap BUN Creatinine Estimated GFR Random Glucose Hemoglobin A1c Calcium Phosphorus Magnesium Total Bilirubin AST ALT Alkaline Phosphatase Total Protein Albumin TSH Free T4 - Imaging Impressions Abdomen/Pelvis CT 11/08/17 00:00 CONCLUSION: 1. No acute abnormality seen. 2. Atherosclerotic change with a patent aortic stent graft. There appears to be diminished flow or obstruction of the right common iliac artery. There is a patent femoral-femoral bypass graft present. 3. Suspected nonobstructing left renal stones. <Corby Cornejo - Last Filed: 11/09/17 21:02> Assessment and Plan (1) Acute GI bleeding Status: Acute Code(s): K92.2 - Gastrointestinal hemorrhage, unspecified (2) Constipation Status: Acute Code(s): K59.00 - Constipation, unspecified - Plan Assessment: Admission - Constipation began about one week ago, but states symptoms began after starting opioid pain medication for a rib fracture after a fall, pt was seen in ER for this on 11/02. Reports some incontinent loose stool but unable to have any solid stool. Pain in rectum with attempted bowel movement. Also reports some BRB clots, approximately 3 episodes of this. Denies history of GIB. Has never had EGD or colonoscopy. Denies associated abdominal pain, nausea, vomiting. - Supratherapeutic INR- INR 10.4- on Coumadin -CAD S/P stents x 3, history of DVT, history of aorto-femoral bypass (11/09) Pt reports no more issues with constipation, states BMs are normal. Still having small amount of BRB in his stool. Discussed with him need for colonoscopy, differential of colon cancer can not be ruled out with CT scan and pt continues to refuse colonoscopy, states he is aware of the risks and does not want to proceed with the colonoscopy. H/H remains stable. INR corrected Plan: Pt refused colonoscopy Advised fiber Stool softeners Drink lots of water Bowel regimen important because on chronic opioids Pt refusing procedure, our service will sign off, please reconsult as needed Have pt follow up with GI after DC Patient has been seen and examined by myself and Dr. Cornejo and this note is written on his behalf <Angela Ovalles - Last Filed: 11/09/17 12:41> (1) Acute GI bleeding Status: Acute Code(s): K92.2 - Gastrointestinal hemorrhage, unspecified (2) Constipation Status: Acute Code(s): K59.00 - Constipation, unspecified - Attending Attestation Seen and examined, plan for colonoscopy when patient more agreeing . Notify us if needed again. <Corby Cornejo - Last Filed: 11/09/17 21:02>
[2017-11-10] MEDS: Morphine Inj 4 MG/ML Vial IV.PUSH PRN ×7 (00:30→22:14)
[2017-11-10] MEDS: oxyCODONE/Acetaminophen 10/325 Tablet PO PRN ×3 (05:48→17:56)
[2017-11-10] MEDS: Senna/Docusate Sodium 8.6/50 MG Tablet PO SCH ×2 (08:40→22:15)
[2017-11-10] MEDS: Pantoprazole Inj 40 MG Vial IV.PUSH SCH (08:41)
[2017-11-10] MEDS: amLODIPine 10 MG Tablet PO SCH (08:41)
[2017-11-10] MEDS: Polyethylene Glycol 3350 17 GM Packet PO SCH (08:42)
[2017-11-10 09:31] LABS: Baso % (Auto) 0.6 % (0.0-2.0); Eos # (Auto) 0.4 th/mm3 (0.0-0.4); Hematocrit 31.6 % (39.0-51.0); Hemoglobin 10.6 gm/dL (13.0-17.0); Lymph % (Auto) 14.9 % (9.0-44.0); Mean Corpuscular HGB Conc 33.7 % (32.0-36.0); Mean Corpuscular Hemoglobin 32.8 pg (27.0-34.0); Mean Corpuscular Volume 97.4 fL (80.0-100.0); Mean Platelet Volume 8.6 fL (7.0-11.0); Mono # (Auto) 0.7 th/mm3 (0.0-0.9); Mono % (Auto) 9.9 % (0.0-8.0); Neut # (Auto) 4.6 th/mm3 (1.8-7.7); Neut % (Auto) 68.6 % (16.0-70.0); Platelet Count 233 th/mm3 (150-450); Red Blood Count 3.24 mil/mm3 (4.50-5.90); Red Cell Distribution Width 17.4 % (11.6-17.2); White Blood Count 6.6 th/mm3 (4.0-11.0)
[2017-11-10 09:33] LABS: Prothrombin Time 10.3 sec (9.8-11.6)
[2017-11-10 10:22] LABS: Anion Gap 9 meq/L (5-15); Blood Urea Nitrogen 17 mg/dL (7-18); Calcium 9.4 mg/dL (8.5-10.1); Carbon Dioxide 29.1 meq/L (21.0-32.0); Chloride 103 meq/L (98-107); Glomerular Filtration Rate Greater Than 89 mL/min (>89); Glucose,Random 101 mg/dL (74-106); Magnesium 2.1 mg/dL (1.5-2.5); Potassium 3.9 meq/L (3.5-5.1); Sodium 141 meq/L (136-145)
--- NOTE | 2017-11-10 13:12 | P.PN ---
Subjective Interval history: Follow-up rectal bleeding. Still with rectal bleeding he now agrees to proceed with endoscopy will alert GI. Patient has high tolerance to pain medication on Percocet 10 mg 4 times a day at home followed by pain management. Physical Exam Vital signs: Vital Signs 11/09/17 16:00 11/09/17 20:00 11/10/17 00:00 Temperature 97.5 F L 98.3 F 98.2 F Pulse Rate 85 92 H 83 Respiratory Rate 18 18 16 Blood Pressure 135/64 124/64 131/63 Pulse Oximetry 93 L 93 L 94 L 11/10/17 08:00 Temperature 98.0 F Pulse Rate 79 Respiratory Rate 19 Blood Pressure 130/60 Pulse Oximetry 90 L Intake & Output 11/09/17 11/10/17 11/10/17 18:59 06:59 18:59 Intake Total 900 / 900 720 / 720 Balance 900 / 900 720 / 720 Intake: Oral 900 / 900 720 / 720 Other: # Voids 3 2 Date of Last Bowel Movement 11/08/17 11/08/17 Narrative: GENERAL: Well-developed well-nourished SKIN: Warm and dry. Large ecchymosis right chest which is tender CARDIOVASCULAR: Regular rate and rhythm without murmurs, gallops, or rubs. S1- S2 no S3 or S4 RESPIRATORY: Breath sounds equal bilaterally. No accessory muscle use. GASTROINTESTINAL: Abdomen soft, non-tender, nondistended. BACK: Nontender without obvious deformity. No CVA tenderness. Awake and oriented nonfocal Results - Labs CBC & Chem 7: 11/10/17 07:45 11/10/17 07:45 Laboratory Results - last 24 hr 11/10/17 11/10/17 11/10/17 07:45 07:45 07:45 WBC 6.6 RBC 3.24 L Hgb 10.6 L Hct 31.6 L MCV 97.4 MCH 32.8 MCHC 33.7 RDW 17.4 H Plt Count 233 MPV 8.6 Neut % (Auto) 68.6 Lymph % (Auto) 14.9 [place] % (Auto) 9.9 H Eos % (Auto) 6.0 H Baso % (Auto) 0.6 Neut # (Auto) 4.6 Lymph # (Auto) 1.0 [place] # (Auto) 0.7 Eos # (Auto) 0.4 Baso # (Auto) 0.0 WBC Differential . Differential Comment Auto diff final PT 10.3 INR 1.0 Sodium 141 Potassium 3.9 Chloride 103 Carbon Dioxide 29.1 Anion Gap 9 BUN 17 Creatinine 0.63 Estimated GFR Greater than 89 Random Glucose 101 Calcium 9.4 D Magnesium 2.1 - Procedures none Assessment and Plan - Assessment (1) Acute GI bleeding Code(s): K92.2 - Gastrointestinal hemorrhage, unspecified Status: Acute (2) Constipation Code(s): K59.00 - Constipation, unspecified Status: Acute (3) Abnormal INR Code(s): R79.1 - Abnormal coagulation profile Status: Acute (4) Closed rib fracture Code(s): S22.39XA - Fracture of one rib, unspecified side, initial encounter for closed fracture Status: Acute - Plan 72-year-old man with GI bleed Constipation - consult gastroenterology - appreciate assistance - constipation meds per protocol, treatment with soapsuds enema, Relistor 1. Manual disimpaction for constipation - serial H&H - monitor results - Improving now with regular BM but persistent rectal bleeding. He now agrees to proceed with colonoscopy will alert GI Pain secondary to rib fx -Patient with high tolerance secondary to chronic narcotic use. Will increase dose to oxycodone 15 mg every 6 hours as needed only in the hospital patient made aware counseled regarding narcotics IV Morphine PRN pain Coagulopathy. Resolved Correction with FFP and plasma COPD - Duonebs as needed for wheezing/SOB - incentive spirometry Hypokalemia -Corrected Self-care deficit - consult PT DVT prophylaxis: Bilateral SCDs Hx DVT restart coumadin when bleeding resolves and cleared by GI. Patient aware risk of DVT without anticoagulation Discharge Planning: Dc home in am if no more bleeding. Hope he will agree with Cscope if bleeding persists
[2017-11-10] MEDS ORDERED: PEG 3350/E-Lyte Soln 4000 ML Bottle PO ONE (16:00)
[2017-11-10] MEDS ORDERED: Chlorhexidine Gluconate 2% 1 Pack (2 Cloths) TOPICAL SCH (16:45)
[2017-11-10] MEDS ORDERED: Metoprolol Tartrate 25 MG Tablet PO SCH (16:45)
[2017-11-10] MEDS ORDERED: Sodium Chlor 0.9% Inj 500 ML IV.SIG SCH (17:00)
[2017-11-11] MEDS: oxyCODONE/Acetaminophen 10/325 Tablet PO PRN ×2 (00:21→06:06)
[2017-11-11] MEDS: Morphine Inj 4 MG/ML Vial IV.PUSH PRN ×5 (01:27→20:43)
[2017-11-11] MEDS ORDERED: Phenylephrine/NS 1000 MCG/10ML Syringe IV.PUSH ONE (12:00)
--- NOTE | 2017-11-11 12:53 | P.PCN ---
Date of procedure: 11/11/17 Pre-op diagnosis: Rectal bleeding Post-op diagnosis: other Procedure: PROCEDURE PERFORMED Colonoscopy with snare polypectomy and biopsy INDICATION FOR PROCEDURE Rectal bleeding PROCEDURE: The procedure, risks and benefits were discussed with Patient/POA and informed consent was obtained. Anesthesia sedated Patient with Diprivan. Patient was placed in the left lateral decubitus position. Colonoscopy: The Pentax videoscope was introduced through the rectum and advanced to cecum where the ileocecal valve and appendiceal orifice were identified. Retroflexion was performed in the rectum. Colonic prep was fair FINDINGS: Colonic withdrawal time greater than 6 minutes. As the scope was slowly withdrawn colonic mucosa was carefully inspected the patient was noted to have 2 small superficial ulcerations in the rectum 1 anterior the other posterior no visible vessel no active bleeding these ulcerations were biopsied they are of unclear significance the patient was also noted to have 4 polyps to the were removed with a biopsy forceps one in the descending colon the other in the rectum both were diminutive and there were 2 other polyps one in the sigmoid one in the rectum that were removed with cold snare technique colonoscopy was otherwise unremarkable so is retroflexion and rectal examination ESTIMATED BLOOD LOSS: None SPECIMENS REMOVED: Colon biopsy COMPLICATIONS: None IMPRESSION: Colon polyps Rectal ulcers PLAN: Await biopsies Continue with current supportive care Monitor labs Colonoscopy in 5 years Anesthesia: MAC Condition: stable Disposition: floor
[2017-11-11] MEDS: Polyethylene Glycol 3350 17 GM Packet PO SCH (14:08)
[2017-11-11] MEDS: Senna/Docusate Sodium 8.6/50 MG Tablet PO SCH ×2 (14:09→20:48)
--- NOTE | 2017-11-11 14:25 | P.PN ---
Subjective Interval history: Follow-up rectal bleeding. Still with rib pain. Counseled regarding narcotics. Discussed with GI, may restart Coumadin okay for discharge Physical Exam Vital signs: Vital Signs 11/10/17 16:00 11/10/17 20:00 11/11/17 00:00 Temperature 97.7 F 97.7 F 98 F Pulse Rate 79 85 86 Respiratory Rate 19 20 20 Blood Pressure 147/68 H 135/66 141/71 H Pulse Oximetry 92 L 91 L 91 L 11/11/17 08:00 11/11/17 10:35 11/11/17 12:57 Temperature 98.0 F 97.5 F L 96.9 F L Pulse Rate 80 58 L 72 Respiratory Rate 18 20 18 Blood Pressure 122/58 L 122/78 128/63 Pulse Oximetry 92 L 92 L 96 11/11/17 13:08 11/11/17 13:17 Temperature Pulse Rate 72 Respiratory Rate 18 5 L Blood Pressure 135/64 Pulse Oximetry 94 L Intake & Output 11/10/17 11/11/17 11/11/17 18:59 06:59 18:59 Intake Total 1200 / 1200 480 / 480 500 / 500 Output Total 200 / 200 Balance 1200 / 1200 480 / 480 300 / 300 Intake: Oral 1200 / 1200 480 / 480 Anesthesia Amount 500 / 500 Output: Urine 200 / 200 Other: # Voids 4 2 Date of Last Bowel Movement 11/08/17 11/11/17 # Bowel Movements 2 12 Narrative: GENERAL: Well-developed well-nourished SKIN: Warm and dry. Large ecchymosis right chest which is tender CARDIOVASCULAR: Regular rate and rhythm without murmurs, gallops, or rubs. S1- S2 no S3 or S4 RESPIRATORY: Breath sounds equal bilaterally. No accessory muscle use. GASTROINTESTINAL: Abdomen soft, non-tender, nondistended. BACK: Nontender without obvious deformity. Awake and oriented nonfocal Results - Labs CBC & Chem 7: 11/10/17 07:45 11/10/17 07:45 ITS Impressions Chest X-Ray 11/06/17 22:02 CONCLUSION: Rotated chest x-ray. There is some increased prominence at the at the right hilar region and in the right upper lobe which could be partially secondary to the rotation. Some degree of consolidation or atelectasis in these regions cannot be excluded. Compression deformities at T5 and T10. Chest CT 11/06/17 23:06 CONCLUSION: 1. Nondisplaced right-sided 3rd-7th rib fractures with angulated fracture of the anterior right second rib. 2. No pneumothorax or pleural effusion. 3. Stable severe compression fracture of T12 vertebral body. 4. Redemonstration of mild upper lobe predominant centrilobular emphysema with stable 4 mm subpleural nodule in the right upper lobe. 5. 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 6. Coronary artery calcifications. Head CT 11/06/17 23:08 CONCLUSION: 1. Stable CT examination of the head. 2. No acute intracranial abnormality. Abdomen X-Ray 11/07/17 00:00 CONCLUSION: No evidence of obstruction. Abdomen/Pelvis CT 11/08/17 00:00 CONCLUSION: 1. No acute abnormality seen. 2. Atherosclerotic change with a patent aortic stent graft. There appears to be diminished flow or obstruction of the right common iliac artery. There is a patent femoral-femoral bypass graft present. 3. Suspected nonobstructing left renal stones. - Procedures Cscope Assessment and Plan - Assessment (1) Acute GI bleeding Code(s): K92.2 - Gastrointestinal hemorrhage, unspecified Status: Acute (2) Constipation Code(s): K59.00 - Constipation, unspecified Status: Acute (3) Abnormal INR Code(s): R79.1 - Abnormal coagulation profile Status: Acute (4) Closed rib fracture Code(s): S22.39XA - Fracture of one rib, unspecified side, initial encounter for closed fracture Status: Acute - Plan 72-year-old man with GI bleed Constipation - consult gastroenterology - appreciate assistance - constipation meds per protocol, treatment with soapsuds enema, Relistor 1. Manual disimpaction for constipation - serial H&H - monitor results - Improving with regular BM but persistent rectal bleeding. Cscope with rectal ulcerations and 4 polyps to the were removed with a biopsy forceps one in the descending colon the other in the rectum both were diminutive and there were 2 other polyps one in the sigmoid one in the rectum that were removed with cold snare technique. F/u path and ok to restart Coumadin Pain secondary to rib fx -Patient with high tolerance secondary to chronic narcotic use. Will increase dose to oxycodone 15 mg every 6 hours as needed only in the hospital patient made aware counseled regarding narcotics IV Morphine PRN pain Coagulopathy. Resolved Correction with FFP and plasma COPD - Duonebs as needed for wheezing/SOB - incentive spirometry Hypokalemia -Corrected Self-care deficit - consult PT DVT prophylaxis: Bilateral SCDs Hx DVT restart coumadin cleared by GI. Patient aware risk of DVT without anticoagulation Discharge Planning: Dc home in am if no more bleeding. Hope he will agree with Cscope if bleeding persists
[2017-11-11] MEDS: amLODIPine 10 MG Tablet PO SCH (14:31)
[2017-11-11] MEDS: Pantoprazole Inj 40 MG Vial IV.PUSH SCH (14:54)
--- NOTE | 2017-11-11 18:15 | ECG ---
Date Performed: 11/10/2017 Time Performed: 18:28:43 PTAGE: 72 years EKG: Sinus rhythm WITH FREQUENT VENTRICULAR PREMATURE COMPLEXES ABNORMAL RHYTHM ECG Compared to PREVIOUS TRACING , sinus rhythm is slower, and PVCs are now present. PREVIOUS TRACIN 19.07 DOCTOR: Dg Calixto Interpretating Date/Time 11/11/2017 18:14:05
[2017-11-12] MEDS: Morphine Inj 4 MG/ML Vial IV.PUSH PRN ×3 (00:45→08:47)
[2017-11-12 04:48] LABS: Hematocrit 27.9 % (39.0-51.0); Hemoglobin 9.7 gm/dL (13.0-17.0); Mean Corpuscular HGB Conc 34.8 % (32.0-36.0); Mean Corpuscular Hemoglobin 33.7 pg (27.0-34.0); Mean Corpuscular Volume 96.9 fL (80.0-100.0); Platelet Count 220 th/mm3 (150-450); Red Blood Count 2.88 mil/mm3 (4.50-5.90); Red Cell Distribution Width 17.1 % (11.6-17.2); White Blood Count 5.3 th/mm3 (4.0-11.0)
[2017-11-12 05:05] LABS: Anion Gap 8 meq/L (5-15); Blood Urea Nitrogen 16 mg/dL (7-18); Calcium 8.7 mg/dL (8.5-10.1); Carbon Dioxide 27.7 meq/L (21.0-32.0); Chloride 104 meq/L (98-107); Glomerular Filtration Rate Greater Than 89 mL/min (>89); Glucose,Random 95 mg/dL (74-106); Potassium 3.5 meq/L (3.5-5.1); Sodium 140 meq/L (136-145)
[2017-11-12] MEDS ORDERED: Warfarin Consult Pharmacy 1 EACH OTHER SCH (06:00)
--- NOTE | 2017-11-12 06:01 | P.DS ---
Date of admission: 11/07/17 02:25 Primary care physician: Dennis Martínez MD Brief History from admission: Mr. Olson is a 72 y/o male with a history of CAD s/p stent, aorta-femoral bypass, hyperlipidemia, hypertension, COPD, and recent fall with rib and clavicle fractures who presented to the ED on 11/06/17 for evaluation of constipation, rectal bleed, and pain from recent fractures. The patient reports severe right lateral rib pain with impaired ability to breath deeply. He reports no BM x 1 week and has seen some rectal bleeding. His INR is 10.4 in ED. The ED doctor was unable to manually disimpact the patient. He is admitted to the [facility] service. DS: Diagnosis - Discharge Diagnosis (1) Acute GI bleeding Status: Acute (2) Constipation Status: Acute (3) Abnormal INR Status: Acute (4) Closed rib fracture Status: Acute DS: Medications - Discharge Medications Prescriptions: sennosides-docusate sodium [Senna Plus] 2 tab PO BID #60 tab DS: Summary Hospital Course: 72-year-old man with GI bleed Constipation - consulted gastroenterology - appreciate assistance - serial H&H - monitor results - constipation meds per protocol, treatment with soapsuds enema, Relistor 1. Manual disimpaction for constipation - scope with rectal ulcerations and 4 polyps to the were removed with a biopsy forceps one in the descending colon the other in the rectum both were diminutive and there were 2 other polyps one in the sigmoid one in the rectum that were removed with cold snare technique. F/u path and ok to restart Coumadin hx DVT Pain secondary to rib fx -Patient with high tolerance secondary to chronic narcotic use. Will increase dose to oxycodone 15 mg every 6 hours as needed only in the hospital patient made aware counseled regarding narcotics IV Morphine PRN pain Coagulopathy. Resolved Correction with FFP and plasma COPD - Duonebs as needed for wheezing/SOB - incentive spirometry Hypokalemia -Corrected Self-care deficit - consult PT DVT prophylaxis: Bilateral SCDs - Time Spent with Patient Total time spent providing and/or coordinating discharge services: - Quality: VTE Deep Vein Thrombosis/Pulmonary Embolism Present on Admission: No Exam Vital signs: Vital Signs 11/11/17 08:00 11/11/17 10:35 11/11/17 12:57 Temperature 98.0 F 97.5 F L 96.9 F L Pulse Rate 80 58 L 72 Respiratory Rate 18 20 18 Blood Pressure 122/58 L 122/78 128/63 Pulse Oximetry 92 L 92 L 96 11/11/17 13:08 11/11/17 13:17 11/11/17 16:00 Temperature 97.9 F Pulse Rate 72 51 L Respiratory Rate 18 5 L 20 Blood Pressure 135/64 154/71 H Pulse Oximetry 94 L 93 L 11/11/17 20:30 11/12/17 00:47 Temperature 98.1 F 98.0 F Pulse Rate 75 81 Respiratory Rate 20 18 Blood Pressure 107/59 L 152/70 H Pulse Oximetry 95 97 Intake & Output 11/11/17 11/11/17 11/12/17 06:59 18:59 06:59 Intake Total 480 / 480 860 / 860 Output Total 200 / 200 Balance 480 / 480 660 / 660 Intake: Oral 480 / 480 360 / 360 Anesthesia Amount 500 / 500 Output: Urine 200 / 200 Other: # Voids 2 5 Date of Last Bowel Movement 11/11/17 # Bowel Movements 12 3 Narrative: GENERAL: Well-developed well-nourished SKIN: Warm and dry. Large ecchymosis right chest which is tender CARDIOVASCULAR: Regular rate and rhythm without murmurs, gallops, or rubs. S1- S2 no S3 or S4 RESPIRATORY: Breath sounds equal bilaterally. No accessory muscle use. GASTROINTESTINAL: Abdomen soft, non-tender, nondistended. BACK: Nontender without obvious deformity. Awake and oriented nonfocal x DVT restart coumadin cleared by GI. Patient aware risk of DVT without anticoagulation Results Procedures completed during hospitalization: Cscope Pending studies at discharge: Pending at discharge 11/11/17 14:06 Surgical [PTH] Routine Labs on day of discharge: Labs from last 24 hours 11/12/17 11/12/17 04:13 04:12 WBC 5.3 RBC 2.88 L Hgb 9.7 L Hct 27.9 L MCV 96.9 MCH 33.7 MCHC 34.8 RDW 17.1 Plt Count 220 MPV 8.0 Sodium 140 Potassium 3.5 Chloride 104 Carbon Dioxide 27.7 Anion Gap 8 BUN 16 Creatinine 0.64 Estimated GFR Greater than 89 Random Glucose 95 Calcium 8.7 - Impressions ITS Impressions Chest X-Ray 11/06/17 22:02 CONCLUSION: Rotated chest x-ray. There is some increased prominence at the at the right hilar region and in the right upper lobe which could be partially secondary to the rotation. Some degree of consolidation or atelectasis in these regions cannot be excluded. Compression deformities at T5 and T10. Chest CT 11/06/17 23:06 CONCLUSION: 1. Nondisplaced right-sided 3rd-7th rib fractures with angulated fracture of the anterior right second rib. 2. No pneumothorax or pleural effusion. 3. Stable severe compression fracture of T12 vertebral body. 4. Redemonstration of mild upper lobe predominant centrilobular emphysema with stable 4 mm subpleural nodule in the right upper lobe. 5. 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 6. Coronary artery calcifications. Head CT 11/06/17 23:08 CONCLUSION: 1. Stable CT examination of the head. 2. No acute intracranial abnormality. Abdomen X-Ray 11/07/17 00:00 CONCLUSION: No evidence of obstruction. Abdomen/Pelvis CT 11/08/17 00:00 CONCLUSION: 1. No acute abnormality seen. 2. Atherosclerotic change with a patent aortic stent graft. There appears to be diminished flow or obstruction of the right common iliac artery. There is a patent femoral-femoral bypass graft present. 3. Suspected nonobstructing left renal stones. Discharge Plan - Discharge Disposition Patient Disposition: W/Home Health Service - Discharge Condition Condition: Stable - Discharge Order Discharge Orders: Discharge Order (Routine); Ordered 11/11/17 Ordered By: Adilson Mcallister - Physicians Team Primary Care Provider: Dennis Martínez Attending Provider: Ankur Parnell Other Providers: Corby Cornejo MD
[2017-11-12] MEDS: Pantoprazole Inj 40 MG Vial IV.PUSH SCH (08:46)
[2017-11-12] MEDS: amLODIPine 10 MG Tablet PO SCH (08:48)
[2017-11-12] MEDS: Polyethylene Glycol 3350 17 GM Packet PO SCH (08:49)
[2017-11-12 09:26] LABS: Prothrombin Time 10.6 sec (9.8-11.6)
== END 2017-11-12 10:54 | disposition home health service (06) ==
LOC: NEPE 20:00 → NEDA 11-07 02:25 → NEDH 11-07 06:55 → HCIN 11-07 13:20 → N07 11-08 22:48
PROVIDERS: ADMIT Hospitalist; ATTEND Hospitalist